=== PATIENT | male | born 1970 | race Caucasian/White ===

== ENCOUNTER → 2023-05-20 12:46 | Outpatient (BNVA) | payer BC, SELFPAY | PROVIDERS: PCP Family Medicine; Referring Provider Family Medicine; Visit Provider Internal Medicine | DX: R07.9 Chest pain, unspecified (principal) | CPT/HCPCS: 93005 ==

== ENCOUNTER → 2023-07-30 13:20 | Outpatient (BNVA) | payer BC, SELFPAY | PROVIDERS: PCP Family Medicine; Referring Provider Family Medicine; Visit Provider Specialist | DX: M25.511 Pain in right shoulder (principal); G89.29 Other chronic pain | CPT/HCPCS: 73030 ==

== ENCOUNTER 2023-09-10 11:08 | Emergency (ER) | payer BC, SELFPAY ==
--- NOTE | 2023-09-10 11:12 | CT_ITS ---
WS: [id number] CT HEAD NONCONTRAST HISTORY: Symptoms of acute stroke TECHNIQUE: Contiguous axial imaging performed through the brain in 2.5 mm imaging. Bone and soft tiss ue windows. Sagittal and coronal reformats reviewed. All CT scans at [facility] use at least one of these dose optimization techniques: automated exposure control; mA and/or kV adjustment per pa tient size (includes targeted exams where dose is matched to clinical indication); or iterative recon struction. DLP: 1135.0 mGy COMPARISON: None available. No acute intracranial hemorrhage, midline shift or mass effect. Area of decreased attenuation with loss of the dyer-white matter differentiation involving the LEFT p osterior cerebral artery territory extending along the temporal lobe. Suspect this is probably a suba cute infarct. Prominent perivascular space versus remote lacunar infarct along the inferior LEFT basa l ganglia. Additional small lacunar infarct LEFT caudate body. Ventricles: Normal size with no hydrocephalus. No inferior displacement of the cerebellar tonsils. Paranasal sinuses: As visualized are clear. Mastoid air cells: Well pneumatized. Calvarium and scalp: Skull is intact with no soft tissue edema or swelling. CT/CT head thrombolytic 29689 IMPRESSION: 1. 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 No hemorrhage. Consider nonemergent MRI brain with contrast to be sure there is n o underlying enhancing mass. 2. Small lacunar infarct versus perivascular space inferior LEFT basal ganglia and a prior lacunar infarct LEFT caudate body. Notified Sonya Paez MD at 09/10/2023 11:29 AM.
--- NOTE | 2023-09-10 11:19 | ED_ITS ---
HPI - Neuro Symptoms/Deficit 2 General: Chief Complaint: Neuro Symptoms/Deficit Stated Complaint: loss of vision, slurred speech Time Seen by Provider: 09/10/23 11:12 Source: patient Mode of arrival: ambulatory Limitations: no limitations History of Present Illness: 53-year-old male who i-STAT at 1030 this morning started slurring his speech and was having vision changes could not see his phone on his left side. Patient has a history of A-fib he was on Eliquis he had had a aortic valve replacement done last week at [facility] she states that he had had a possible stroke during the surgery she is unsure if he received any lytics at that time they have started him on Coumadin he took a dose this morning. Denies any headache denies any fevers. Associated symptoms: Deny chest pain, headache(s), nausea or vomiting Review of Systems 2 Const: Denies: fever(s), chills, body aches or change in appetite Eyes: Reports: blurry vision and blind spots; Denies: eye discomfort ENMT: Denies: throat pain or dental pain Card: Denies: chest pain Resp: Denies: dyspnea GI: Denies: abdominal pain, nausea, vomiting or diarrhea Musc: Denies: neck pain or back pain Skin/Breast: Denies: rash Neuro: Reports: Slurred speech present; Denies: headache(s) PFSH ED 2 PFSH: Medical History Chronic atrial fibrillation NIH stroke score 2 NIHSS: Level Of Consciousness - 1a: 0 Level Of Consciousness Questions - 1b: Both Correct Level Of Consciousness Commands - 1c: Both Correct Best Gaze - 2: Normal Visual Rojo - 3: Partial Hemianopia Facial Palsy - 4: N ormal Motor Arm Right - 5: No Drift Motor Arm Left - 5: No Drift Motor Leg Right - 6: No Drift Motor Leg Left - 6: No Drift Limb Ataxia - 7: P resent In One Limb Sensory - 8: Normal Best Language - 9: Mild/Moderate Aphasia Dysarthia - 10: Normal Extinction And Inattention - 11: 0 Score: Total Score: 3 Course 2 Vital Signs: Vital signs: Vital Signs Temperature 98.0 F 09/10/23 11:27 Pulse Rate 85 09/10/23 13:33 Respiratory Rate 15 09/10/23 13:33 Blood Pressure 113/67 09/10/23 12:49 Pulse Oximetry 100 09/10/23 13:33 Oxygen Delivery Me thod Room Air 09/10/23 12:49 MDM - Neuro Symptoms/Deficit Medical Decision Making Patient presents here with a likely TIA as symptoms here of completely resolved he did have a previous stroke a week ago he is currently on Coumadin his INR is 2 here. I did offer admission he states he feels improved like to go home as he is follow-up with his CV surgeon tomorrow he is to return if worsening he understands agrees to plan Medical Records I reviewed the patient's medical records. Lab Data I reviewed the patient's lab results. 09/10/23 11:20 09/10/23 11:[address] 09/10/23 11:12 IMPRESSION: 1. 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 No hemorrhage. Consider nonemergent MRI brain with contrast to be sure there is no underlying enhancing mass. 2. Small lacunar infarct versus perivascular space inferior LEFT basal ganglia and a prior lacunar infarct LEFT caudate body. Notified Sonya Paez MD at 09/10/2023 11:29 AM. Head/Neck CTA 09/10/23 11:33 IMPRESSION: 1. Normal cervical carotid arteries. No stenosis. 2. Severe stenosis LEFT M1 segment with paucity of vessels distally. 3. LEFT posterior cerebral artery appears patent. No thrombus. 4. Postsurgical changes in the mediastinum from prior recent CABG. There is still air in the mediastinum and edema. This is probably all appropriate for the recent surgery. 5. LEFT chest wall subcutaneous air. Laboratory Results WBC 11.79 10^3/uL (3.29-11.43) H 09/10/23 11:20 RBC 3.63 10^6/uL (3.85-5.65) L 09/10/23 11:20 Hgb 11.00 g/dL (11.27-16.99) L 09/10/23 11:20 Hct 34.1 % (37-53) L 09/10/23 11:20 MCV 93.9 fl (82-101) 09/10/23 11:20 MCH 30.3 pg (27-33) 09/10/23 11:20 MCHC 32.3 g/dL (30-55) 09/10/23 11:20 RDW 15.5 % (12.1-15.1) H 09/10/23 11:20 Plt Count 382 10^3/cmm (157-399) 09/10/23 11:20 MPV 9.6 fL (7.4-10.4) 09/10/23 11:20 Neut % (Auto) 61.8 % 09/10/23 11:20 Lymph % (Auto) 21.0 % 09/10/23 11:20 [place] % (Auto) 9.3 % 09/10/23 11:20 Eos % (Auto) 2.8 % 09/10/23 11:20 Baso % (Auto) 1.1 % 09/10/23 11:20 Neut # (Auto) 7.28 10^3/uL (1.8-7.7) 09/10/23 11:20 Lymph # (Auto) 2.5 10^3/uL (0.8-4.8) 09/10/23 11:20 [place] # (Auto) 1.1 10^3/uL (0.2-0.9) H 09/10/23 11:20 Eos # (Auto) 0.3 10^3/uL (0.0-0.8) 09/10/23 11:20 Baso # (Auto) 0.1 10^3/uL (0.0-0.1) 09/10/23 11:20 Nucleated RBC % (auto) 0 % 09/10/23 11:20 Nucleated RBCs # 0.0 /100WBC 09/10/23 11:20 PT 23.50 SECONDS (12.1-14.9) H 09/10/23 11:20 INR 2.01 (0.8-1.2) H 09/10/23 11:20 APTT 45.1 SECONDS (23.9-36.7) H 09/10/23 11:20 Sodium 137 mmol/L (136-145) 09/10/23 11:20 Potassium 4.6 mmol/L (3.5-5.1) 09/10/23 11:20 Chloride 101 mmol/L (98-107) 09/10/23 11:20 Carbon Dioxide 27 mmol/L (22-29) 09/10/23 11:20 Anion Gap 13.6 (5-19) 09/10/23 11:20 BUN 11 mg/dL (6-20) 09/10/23 11:20 Creatinine 1.0 mg/dL (0.7-1.2) 09/10/23 11:20 GFR Calculation 77.9 mL/min (90-130) L 09/10/23 11:20 Glucose 103 mg/dL (65-115) 09/10/23 11:20 POC Glucose 102 mg/dL (70-110) 09/10/23 11:27 Calculated Osmolality 284 mOsm/kg (285-295) L 09/10/23 11:20 Calcium 8.6 mg/dL (8.5-10.5) 09/10/23 11:20 Total Bilirubin 0.3 mg/dL (0.15-1.2) 09/10/23 11:20 AST 25 U/L (0-40) 09/10/23 11:20 ALT 25 U/L (0-41) 09/10/23 11:20 Alkaline Phosphatase 63 U/L (40-130) 09/10/23 11:20 Total Protein 6.3 g/dL (6.6-8.7) L 09/10/23 11:20 Albumin 3.2 g/dL (3.5-5.2) L 09/10/23 11:20 Globulin 3.1 g/dL (1.3-4.6) 09/10/23 11:20 Urine Color Light yellow (Yellow) 09/10/23 13:11 Urine Appearance Clear (CLEAR) 09/10/23 13:11 Urine pH 7 (5-7) 09/10/23 13:11 Ur Specific Coleman 1.015 (1.005-1.030) 09/10/23 13:11 Urine Protein Neg (Negative) 09/10/23 13:11 Urine Glucose (UA) Norm (Normal) 09/10/23 13:11 Urine Ketones Negative (Negative) 09/10/23 13:11 Urine Blood Neg (Negative) 09/10/23 13:11 Urine Nitrate Negative (Negative) 09/10/23 13:11 Urine Bilirubin Neg (Negative) 09/10/23 13:11 Urine Urobilinogen Norm mg/dL (Negative) 09/10/23 13:11 Ur Leukocyte Esterase Negative (Negative) 09/10/23 13:11 Urine Opiates Screen Negative ng/mL (Negative) 09/10/23 13:11 Ur Barbiturates Screen Negative ng/mL (Negative) 09/10/23 13:11 Ur Phencyclidine Scrn Negative ng/mL (Negative) 09/10/23 13:11 Ur Amphetamines Screen Negative ng/mL (Negative) 09/10/23 13:11 U Benzodiazepines Scrn Negative ng/mL (Negative) 09/10/23 13:11 Urine Cocaine Screen Negative ng/mL (Negative) 09/10/23 13:11 U Marijuana (THC) Screen Negative ng/mL (Negative) 09/10/23 13:11 All radiology interpretation(s) finalized by discharge EKG Data EKG 1: I personally reviewed and interpreted this EKG as follows: EKG interpretation date: 09/10/23 EKG interpretation time: 11:31 Interpretation: aflutter hr [address] elevation qrs 118 qtc 415 Discharge Plan Discharge Patient Disposition: Home Clinical Impression: Transient cerebral ischemia Condition: Stable Prescriptions: No Action atorvastatin 80 mg tablet 80 mg PO BEDTIME metoprolol succinate 25 mg tablet extended release 24 hr 25 mg PO DAILY furosemide 40 mg tablet 40 mg PO QAM methocarbamol 500 mg tablet 500 mg PO Q6H PRN (Reason: MUSCLE SPASMS) amiodarone 200 mg tablet 200 mg PO BID Aspir-81 81 mg Tablet,Delayed Release (Dr/Ec) 81 mg PO DAILY acetaminophen 500 mg Tablet 1,000 mg PO Q6H PRN (Reason: Pain) warfarin 4 mg tablet 4 mg PO QPM tamsulosin 0.4 mg capsule 0.4 mg PO QPM gabapentin 300 mg capsule 300 mg PO TID colchicine 0.6 mg tablet 0.6 mg PO QAM oxycodone 5 mg tablet 5 mg PO Q4H PRN (Reason: Pain, Moderate) potassium chloride 20 mEq tablet extended release 20 meq PO QAM Discharge Orders: Discharge ED (Routine); Ordered 09/10/23 Ordered By: Sonya Paez Referrals: Cailtin Jaramillo MD [Primary Care Provider] - Discharge Diet: Advance as tolerated Discharge Activity: Resume usual activity Patient Instructions: Transient Ischemic Attack (ED) Coding Level of Care Code ED Temperature Regulator for Chg Tho
[2023-09-10 11:24] LABS: Basophils # 0.1 10^3/uL (0.0-0.1); Basophils % 1.1 %; Eosinophils # 0.3 10^3/uL (0.0-0.8); Eosinophils % 2.8 %; Hematocrit 34.1 % (37-53); Lymphocytes # 2.5 10^3/uL (0.8-4.8); Mean Corpuscular HGB Conc 32.3 g/dL (30-55); Mean Corpuscular Hemoglobin 30.3 pg (27-33); Mean Corpuscular Volume 93.9 fl (82-101); Mean Platelet Volume 9.6 fL (7.4-10.4); Monocytes # 1.1 10^3/uL (0.2-0.9); Monocytes % 9.3 %; Neutrophils # 7.28 10^3/uL (1.8-7.7); Neutrophils % 61.8 %; Nucleated Red Blood Cells % 0 %; Platelet Count 382 10^3/cmm (157-399); Red Blood Count 3.63 10^6/uL (3.85-5.65); Red Cell Distribution Width 15.5 % (12.1-15.1); White Blood Count 11.79 10^3/uL (3.29-11.43)
[2023-09-10 11:27] VITALS: BP 140/97; PULSE 86; RESP 20; TEMP 36.7; O2SAT 91
[2023-09-10 11:31] LABS: Glucose Point of Care 102 mg/dL (70-110)
--- NOTE | 2023-09-10 11:31 | ECG_ITS ---
[facility] Test Date: 2023-09-10 Pat Name: Stepan Boyce Department: Room: Gender: Male Mica Paster: : 1970 Requested By: Sonya Paez Order Number: [id number] Gerry MD: Dinora Barlow M.D. Measurements Intervals [place] Rate: 96 P: 0 NE: 0 QRS: 5 QRSD: 118 T: -42 QT: 361 QTc: 458 Interpretive Statements ATRIAL FLUTTER/TACHYCARDIA INCOMPLETE RIGHT BUNDLE BRANCH BLOCK [90+ ms QRS DURATION, TERMINAL R IN V1/V2, 40+ ms S IN I/aVL/V4/V5/V6] ST DEVIATION AND MODERATE T-WAVE ABNORMALITY, CONSIDER LATERAL ISCHEMIA [-0.1+ mV T-WAVE IN I/aVL/V5/V6] ST DEVIATION AND MODERATE T-WAVE ABNORMALITY, CONSIDER INFERIOR ISCHEMIA [-0.1+ mV T-WAVE IN II/aVF] Compared to ECG 05/20/2023 12:54:24 Atrial fibrillation no longer present T-wave abnormality still present Possible ischemia still present Electronically Signed On 09-10-2023 20:02:00 CDT by Dinora Barlow M.D. [email or web address]
--- NOTE | 2023-09-10 11:33 | CT_ITS ---
WS: [id number] CT ANGIOGRAM CEREBRAL AND CAROTID ARTERIES HISTORY: cva TECHNIQUE: CT angiogram is performed of the carotid and cerebral arteries. During arterial injection imaging is obtained from the skull vertex to the aortic arch in 1.25 mm imaging. Coronal and sagittal reformats are submitted. Additional multi planar reformats of the carotid and cerebral arteries are submitted, MIP imaging also reviewed. NASCET criteria utilized. All CT scans at [facility] us e at least one of these dose optimization techniques: automated exposure control; mA and/or kV adjust ment per patient size (includes targeted exams where dose is matched to clinical indication); or iter ative reconstruction. CONTRAST: Omnipaque 350; 100 mL IV. DLP: 583.52 mGy.cm COMPARISON: No similar studies. Carotid Angiogram: Right carotid: Common carotid artery: Arises normally from the innominate artery. No significant plaque or stenosis. Internal carotid artery: No plaque or stenosis. External carotid artery: Patent. Left carotid: Common carotid artery: Arises normally from the aorta. No significant plaque or stenosis. Internal carotid artery: No plaque or stenosis. External carotid artery: Patent. Right vertebral artery: Unremarkable. Left vertebral artery: Unremarkable. Arises normally from the subclavian artery. Subclavian arteries: RIGHT subclavian artery is negative. Partial obscuration of the LEFT subclavian artery due to contrast injection bolus. Upper thorax: Patient is recently status post CABG. Small layering pleural effusions are noted extend ing towards the lung apices. Small amount of air in the anterior mediastinum. This is probably due to the recent surgery. Mediastinitis may appear similar. There is a additional subcutaneous emphysema o jaxson the LEFT thorax encasing the pectoralis muscles. Thyroid gland: Normal. Osseous structures: Unremarkable. CEREBRAL ANGIOGRAM: Intracranial vertebral arteries: Normal with no significant atherosclerosis. Basilar artery: No significant stenosis or occlusion. No aneurysm. Intracranial Internal carotid arteries: Moderate narrowing of the distal LEFT carotid artery just pro ximal to the supraclinoid carotid. At least 50% stenosis. RIGHT intracranial carotid arteries normal. Middle cerebral arteries: Minimal contrast enhancement in the LEFT M1 segment and distally. There are attempts at reconstitution with a paucity of vessels distally. There is calcified plaque in the mid LEFT M1 segment. Normal RIGHT MCA. Anterior cerebral arteries and ACOM: Normal. Posterior cerebral arteries and PCOM's: Normal. Dural venous sinuses are normally enhancing. Mastoid air cells: Normal. Paranasal sinuses: Normal. Calvarium: Normal. CT/CT angio headneck* [id number] IMPRESSION: 1. Normal cervical carotid arteries. No stenosis. 2. Severe stenosis LEFT M1 segment with paucity of vessels distally. 3. LEFT posterior cerebral artery appears patent. No thrombus. 4. Postsurgical changes in the mediastinum from prior recent CABG. There is st ill air in the mediastinum and edema. This is probably all appropriate for the recent surgery. 5. LEFT chest wall subcutaneous air.
[2023-09-10 11:46] LABS: INR 2.01 (0.8-1.2)
[2023-09-10 11:47] LABS: Partial Thromboplastin Time 45.1 SECONDS (23.9-36.7)
--- NOTE | 2023-09-10 11:49 | PC.NURSE ---
On Dr. Lyons, neurologist, arrival pt symptoms now resolved. current stroke scale is 0. pt still complaining of nausea.
[2023-09-10 12:02] LABS: Alanine Aminotransferase 25 U/L (0-41); Albumin Level 3.2 g/dL (3.5-5.2); Alkaline Phosphatase 63 U/L (40-130); Anion Gap 13.6 (5-19); Aspartate Amino Transferase 25 U/L (0-40); Blood Urea Nitrogen 11 mg/dL (6-20); Calcium 8.6 mg/dL (8.5-10.5); Carbon Dioxide 27 mmol/L (22-29); Chloride 101 mmol/L (98-107); Creatinine Clr Calc Pharmacy 98.3916; Globulin 3.1 g/dL (1.3-4.6); Glomerular Filtration Rate 77.9 mL/min (90-130); Glucose 103 mg/dL (65-115); Osmolality Calculated 284 mOsm/kg (285-295); Potassium 4.6 mmol/L (3.5-5.1); Sodium 137 mmol/L (136-145); Total Bilirubin 0.3 mg/dL (0.15-1.2); Total Protein 6.3 g/dL (6.6-8.7)
--- NOTE | 2023-09-10 12:14 | PM.CONSULT ---
Providers/Reason For Consult Consulting Physician/Specialty*: Michael Lyons MD neurology and epilepsy Reason for Consult*: Code stroke emergency department room number 10 Primary Care Provider: Caitlin Jaramillo MD History of Present Illness History of Present Illness tSepan Boyce is a 53 year old male with a history of atrial fibrillation patient was on Eliquis but now on Coumadin. Patient underwent aortic valve replacement on 09/05/2023 at another facility. Patient was reported to experience a stroke on 09/05/2023 during the surgery or postoperatively. Head CT scan performed on 09/05/2023 revealed left posterior medial temporal lobe infarction. No thrombolytics were administered. On 09/10/2023 at approximately 10:30 AM the patient was reported to have acute onset of right frontal headache associated with slurred speech as well as vision loss with inability to see objects. In the emergency room the patient reported near resolution of the right frontal headache improvement in his speech and reports of return of his vision. Code stroke was initiated at 11:12 AM on 09/10/2023. NIH score = 0. Stat noncontrast head CT was obtained on 09/10/2023 and revealed 1. Area of decreased attenuation most likely a subacute infarct involving the LEFT SCREEN VENT BINDER territory, including the LEFT occipital and inferior temporal lobe. No hemorrhage. Consider nonemergent MRI brain with contrast to be sure there is no underlying enhancing mass. 2. Small lacunar infarct versus perivascular space inferior LEFT basal ganglia and a prior lacunar infarct LEFT caudate body. Since the patient is on anticoagulation (Coumadin) and was on Eliquis prior to aortic valve replacement 09/05/2023, patient is not a candidate for intravenous thrombolytics and no intravenous thrombolytics were administered. The patient will undergo CT angiogram of the head and neck to assess for thrombus to determine if patient is a candidate for thrombectomy. Drug allergies: None Current medications: Warfarin 4 mg p.o. q. evening Amiodarone 200 mg p.o. twice daily Aspirin 81 mg p.o. daily Lipitor 80 mg p.o. nightly Tylenol 1000 mg p.o. every 6 hours as needed for pain Colchicine 0.6 mg p.o. daily Lasix 40 mg p.o. every morning Neurontin 300 mg p.o. 3 times daily for neuropathy pain Methocarbamol 500 mg p.o. every 6 hours as needed Metoprolol 25 mg p.o. daily Oxycodone 5 mg p.o. every 4 hours as needed for pain Potassium chloride 20 mill equivalents p.o. daily Tamsulosin 0.4 mg p.o. daily Past medical history: Atrial fibrillation treated with warfarin Aortic valve replacement 09/05/2023 History of aortic stenosis Hypertension Lower extremity neuropathy Habits: The patient reports drinking 2 beers a day and smoking 1 pack/day but quit 2 weeks prior to his aortic valve surgery Family history: Negative for strokes Review of Systems General: Reports: 10 or more systems reviewed and unremarkable except in HPI and below Medications/Allergies Home Medications Medication Instructions Recorded Confirmed Last Taken Type atorvastatin 80 mg tablet 80 mg PO BEDTIME 05/20/23 09/10/23 09/09/23 History metoprolol succinate 25 mg 25 mg PO DAILY 05/20/23 09/10/23 09/10/23 History tablet,extended release 24 hr acetaminophen 500 mg tablet 1,000 mg PO Q6H PRN Pain 09/10/23 09/10/23 Unknown History amiodarone 200 mg tablet 200 mg PO BID 09/10/23 09/10/23 09/10/23 History aspirin 81 mg tablet,delayed 81 mg PO DAILY 09/10/23 09/10/23 09/10/23 History release colchicine 0.6 mg tablet 0.6 mg PO QAM 09/10/23 09/10/23 09/10/23 History furosemide 40 mg tablet 40 mg PO QAM 09/10/23 09/10/23 09/10/23 History gabapentin 300 mg capsule 300 mg PO TID 09/10/23 09/10/23 09/10/23 History methocarbamol 500 mg tablet 500 mg PO Q6H PRN MUSCLE SPASMS 09/10/23 09/10/23 Unknown History oxycodone 5 mg tablet 5 mg PO Q4H PRN Pain, Moderate 09/10/23 09/10/23 09/10/23 History potassium chloride 20 mEq 20 meq PO QAM 09/10/23 09/10/23 09/10/23 History tablet,extended release tamsulosin 0.4 mg capsule 0.4 mg PO QPM 09/10/23 09/10/23 09/09/23 History warfarin 4 mg tablet 4 mg PO QPM 09/10/23 09/10/23 09/09/23 History Allergies Allergy/AdvReac Type Severity Reaction Status Date / Time No Known Allergies Allergy Verified 07/30/23 13:53 PFSH Acute PFSH: Medical History Chronic atrial fibrillation Vitals/I&O/Wt Last Vital Signs Temp 98.0 F 09/10/23 11:27 Pulse 86 09/10/23 11:27 Resp 20 H 09/10/23 11:27 BP 140/97 09/10/23 11:27 Pulse Ox 91 09/10/23 11:27 Weight last 48 hrs Weight 205 lb Physical Exam Narrative: NIH score = 0 Serum glucose 103 The patient is currently alert and oriented x 3 speech fluent. Head normocephalic. Neck supple. Cranial nerves II through XII grossly intact. Pupils 4 mm round reactive to light and accommodation. Extraocular movements intact. There were no nystagmus. Visual whiting appear grossly to be full via confrontation although the patient initially reported complete vision loss in both eyes bilaterally prior to arrival to [facility] emergency room. There was no obvious facial weakness. Motor testing 5/5 bilaterally. Deep tendon reflexes revealed plantar responses bilaterally. Sensory examination was intact to touch. Patient reported increased sensitivity to touch on the right foot. He reports history of chronic right foot pain and neuropathy in his legs. There was no extinction on double sensory stimulation. Throat clear. Lungs clear. Heart revealed atrial fibrillation. Extremities revealed lower extremity swelling at 2+. There was no cyanosis. Data 09/10/23 11:20 09/10/23 11:20 A&P Assessment and plan (1) Left sided cerebral hemisphere cerebrovascular accident (CVA): Impression: 1. Left cerebral infarction manifested as reports of slurred speech and vision loss 09/10/2023 improved in the emergency room. NIH score = 0. In view of the patient history of aortic valve replacement 09/05/2023 and patient on warfarin for anticoagulation, patient was not a candidate for intravenous thrombolytics and no thrombolytics were administered. 1a. Subacute stroke in the left posterior medial temporal lobe reported on outside CT scan 09/05/2023 2. Aortic valve replacement 09/05/2023 3. Atrial fibrillation treated with warfarin 4. History of lower extremity pain 5. Lower extremity edema 6. Hypertension Plan: 1. CT angiogram of the head and neck to assess for thrombus to determine if patient is a candidate for thrombectomy 2. Neurochecks per NIH stroke protocol 3. Follow recommendations from cardiology regarding the patient's recent aortic valve replacement 4. Recommend formal visual field testing to assess for any visual field deficits 5. Keep head of bed elevated to 30 degrees as tolerated 6. No hypotonic fluids to minimize cerebral edema 7. Consider noncontrast head MRI to further assess for posterior circulation stroke if no contraindications from recent aortic valve replacement performed on 09/05/2023 Consult Attestations Medical Necessity Statement: The patient was evaluated by neurology for code stroke emergency department room #10 Coding Level of Care Code 59445 Diagnoses Left sided cerebral hemisphere cerebrovascular accident (CVA) I63.9
[2023-09-10 12:49] VITALS: BP 113/67; PULSE 85; RESP 16; O2SAT 100
[2023-09-10 13:23] LABS: Add Urine Microscopic? NO; Charge for UA Resulting for Rev
[2023-09-10 13:26] LABS: Bilirubin Urine Neg (Negative); Blood Urine Neg (Negative); Glucose Urine UA Norm (Normal); Ketones Urine Negative (Negative); Leukocyte Esterase Urine Negative (Negative); Nitrate Urine Negative (Negative); Protein Urine Neg (Negative); Specific Gravity, Urine 1.015 (1.005-1.030); Urine Appearance Clear (CLEAR); Urine Color Light yellow (Yellow); Urobilinogen Urine Norm (Negative); pH Urine 7 (5-7)
[2023-09-10 13:33] VITALS: PULSE 85; RESP 15; O2SAT 100
[2023-09-10 13:35] LABS: Amphetamines Screen Urine Negative (Negative); Barbiturates Screen Urine Negative (Negative); Benzodiazepines Screen Urine Negative (Negative); Cocaine Screen Urine Negative (Negative); Opiate Screen Urine Negative (Negative); PCP Screen Urine Negative (Negative); THC Screen Urine Negative (Negative)
== END 2023-09-10 13:36 | disposition home or self-care (01) ==
PROVIDERS: Emergency Provider Emergency Medicine; PCP Family Medicine
DX: G45.9 Transient cerebral ischemic attack, unspecified (principal); Z79.82 Long term (current) use of aspirin; Z79.01 Long term (current) use of anticoagulants
CPT/HCPCS: 36415; 36416; 70450; 70496; 70498; 80053; 80306; 81003; 82962; 85025; 85610; 85730; 93005; 99285; Q9967

== ENCOUNTER 2023-10-17 08:54 | Outpatient (RCR) | payer BC, SELFPAY | END 2023-11-02 23:59 | disposition home or self-care (01) | LOC: SPT 08:54 | PROVIDERS: PCP Family Medicine; Visit Provider Surgery | DX: M25.511 Pain in right shoulder (principal); G89.29 Other chronic pain | CPT/HCPCS: 97110; 97162 ==

== ENCOUNTER → 2023-10-21 09:12 | Outpatient (CLI) | payer BC, SELFPAY ==
--- NOTE | 2023-10-21 09:30 | MR_ITS ---
WS: [id number] MRI RIGHT SHOULDER NONCONTRAST TECHNIQUE: Sagittal T2, coronal T1, T2 and proton density imaging. Axial gradient PDE imaging. CLINICAL INFORMATION: M25.511 - Pain in right shoulder COMPARISON: None. FINDINGS: Some images degraded by susceptibility artifact from hardware anchors Moderate to advanced arthritis AC joint with slight subacromial spurring. Impingement distal supraspi natus. Rotator cuff anchors humeral head. Trace subacromial subdeltoid fluid. Rotator cuff repair lin ears intact with chronic thinning of the distal supraspinatus at the repair site. No tendon retractio n. Infraspinatus appears intact with mild chronic thinning. Normal teres minor. Normal subscapularis. Biceps tendon appears intact within the bicipital groove. Medial subluxation of the biceps tendon along the proximal bicipital groove. Biceps labral anchor appears intact. Intra-ar ticular biceps tendon not well visualized due to hardware artifact. Normal bone marrow signal humerus and glenoid. No other suspicious findings. MR/MR shoulder RT wo con* [id number] IMPRESSION: 1. Moderate to advanced arthritis AC joint with slight subacromial and subdelt oid fluid. 2. Prior rotator cuff repair. Supraspinatus rotator cuff repair appears intact with chronic thinning and postoperative changes. No tendon retraction. 3. Rotator cuff is otherwise intact. 4. Biceps tendon intact within the bicipital groove with medial subluxation al lon the proximal bicipital groove. 5. No other acute findings.
== END | disposition home or self-care (01) ==
LOC: RAD 09:12
PROVIDERS: PCP Family Medicine; Visit Provider Specialist
DX: M19.011 Primary osteoarthritis, right shoulder (principal); Z98.890 Other specified postprocedural states; S43.081A Other subluxation of right shoulder joint, initial encounter
CPT/HCPCS: 73221

== ENCOUNTER 2023-11-04 15:44 | Outpatient (RCR) | payer BC, SELFPAY | END 2023-12-03 23:59 | disposition home or self-care (01) | LOC: CR 15:44 | PROVIDERS: PCP Family Medicine; Referring Provider Surgery; Visit Provider Surgery | DX: Z95.2 Presence of prosthetic heart valve (principal) | CPT/HCPCS: 93798 ==

== ENCOUNTER 2023-11-07 06:00 | Outpatient (RCR) | payer BC, SELFPAY | END 2023-12-03 23:59 | disposition home or self-care (01) | LOC: SST 06:00 | PROVIDERS: PCP Family Medicine; Visit Provider Psychiatry & Neurology Neurology | DX: G45.9 Transient cerebral ischemic attack, unspecified (principal); I48.20 Chronic atrial fibrillation, unspecified; I35.0 Nonrheumatic aortic (valve) stenosis; I10 Essential (primary) hypertension | CPT/HCPCS: 92507; 92523 ==

== ENCOUNTER 2023-12-04 06:00 | Outpatient (RCR) | payer BC, SELFPAY | END 2024-01-03 23:59 | disposition home or self-care (01) | LOC: SST 06:00 | PROVIDERS: PCP Family Medicine; Visit Provider Psychiatry & Neurology Neurology | DX: I48.20 Chronic atrial fibrillation, unspecified (principal); G45.9 Transient cerebral ischemic attack, unspecified; I10 Essential (primary) hypertension; I35.0 Nonrheumatic aortic (valve) stenosis | CPT/HCPCS: 92507 ==

== ENCOUNTER 2023-12-16 08:32 | Outpatient (RCR) | payer BC, SELFPAY | END 2024-01-03 23:59 | disposition home or self-care (01) | LOC: CR 08:32 | PROVIDERS: PCP Family Medicine; Referring Provider Surgery; Visit Provider Surgery | DX: Z95.1 Presence of aortocoronary bypass graft (principal); Z95.2 Presence of prosthetic heart valve | CPT/HCPCS: 93798 ==

== ENCOUNTER 2024-01-04 07:59 | Outpatient (RCR) | payer BC, SELFPAY | END 2024-02-02 23:59 | disposition home or self-care (01) | LOC: CR 07:59 | PROVIDERS: PCP Family Medicine; Referring Provider Surgery; Visit Provider Surgery | DX: Z95.1 Presence of aortocoronary bypass graft (principal); Z95.2 Presence of prosthetic heart valve | CPT/HCPCS: 93798 ==

== ENCOUNTER 2024-01-13 12:56 | Outpatient (CLI) | payer BC, SELFPAY ==
--- NOTE | 2024-01-13 13:00 | MR_ITS ---
WS: [id number] MRI BRAIN WITH AND WITHOUT CONTRAST HISTORY: I10 - Essential (primary) hypertension COMPARISON: CT head 09/10/2023 TECHNIQUE: Multiplanar imaging performed through the brain with MultiHance 19 ml's IV. Previously described LEFT occipital lobe and medial temporal lobe infarct is reidentified. Evolution of the infarct which is predominantly of decreased signal on the diffusion and increased signal on th e ADC map. There are a few peripheral areas of persistent diffusion abnormality. There is a lobulated configuration of the infarct centered in the LEFT occipital and temporal lobe. Additional cortical l aminar necrosis noted on the T1 sequence. No significant enhancement. Additional small lacunar infarcts in the LEFT centrum semiovale and hernandez radiata. These areas do no t enhance. No susceptibility artifacts or prior lacunar infarcts. Ventricles and extra-axial spaces are normal. Clivus and pituitary gland are normal. Visualized posterior fossa and brainstem are also normal. Postcontrast images are negative for masses or vascular malformations. Dural venous sinuses are normal. Paranasal sinuses: Well aerated with no significant disease. Mastoid air cells: Normal. Calvarium and scalp: Normal. MR/MR head wo/w con [id number] IMPRESSION: 1. Previously described infarct involving the LEFT occipital and medial tempor al lobes continues to evolve. Mild cortical laminar necrosis with no enhancemen t. The extent of the edema surrounding the infarct has decreased since the CT o f 09/10/2023. 2. Additional small lacunar infarcts in the LEFT cerebrum. 3. No acute infarct. 4. No enhancing mass or hemorrhage.
[2024-01-13] MEDS: gadobenate dimeglumine 20 mL vial IV (13:19)
== END 2024-01-13 12:57 | disposition home or self-care (01) ==
PROVIDERS: PCP Family Medicine; Visit Provider Psychiatry & Neurology Neurology
DX: I10 Essential (primary) hypertension (principal); I35.0 Nonrheumatic aortic (valve) stenosis; I63.9 Cerebral infarction, unspecified; H53.40 Unspecified visual field defects
CPT/HCPCS: 70553

== ENCOUNTER 2024-02-03 06:00 | Outpatient (RCR) | payer BC, SELFPAY | END 2024-03-04 23:59 | disposition home or self-care (01) | LOC: SST 06:00 | PROVIDERS: PCP Family Medicine; Visit Provider Psychiatry & Neurology Neurology | DX: I48.20 Chronic atrial fibrillation, unspecified (principal); I35.0 Nonrheumatic aortic (valve) stenosis; I10 Essential (primary) hypertension; G45.9 Transient cerebral ischemic attack, unspecified | CPT/HCPCS: 92507 ==

== ENCOUNTER 2024-02-03 08:33 | Outpatient (RCR) | payer BC, SELFPAY | END 2024-03-04 23:59 | disposition home or self-care (01) | LOC: CR 08:33 | PROVIDERS: PCP Family Medicine; Referring Provider Surgery; Visit Provider Surgery | DX: Z95.2 Presence of prosthetic heart valve (principal) | CPT/HCPCS: 93798 ==

== ENCOUNTER → 2024-03-03 09:26 | Outpatient (BNVA) | payer BC, SELFPAY | PROVIDERS: PCP Family Medicine; Visit Provider Nurse Practitioner | DX: M75.81 Other shoulder lesions, right shoulder (principal) | CPT/HCPCS: 36415; 80053; 81003; 85025 ==

== ENCOUNTER 2024-03-05 06:00 | Outpatient (RCR) | payer BC, SELFPAY | END 2024-04-03 23:59 | disposition home or self-care (01) | LOC: SST 06:00 | PROVIDERS: PCP Family Medicine; Visit Provider Psychiatry & Neurology Neurology | DX: I48.20 Chronic atrial fibrillation, unspecified (principal); I35.0 Nonrheumatic aortic (valve) stenosis; I10 Essential (primary) hypertension; G45.9 Transient cerebral ischemic attack, unspecified | CPT/HCPCS: 92507 ==

== ENCOUNTER → 2024-03-12 11:34 | Outpatient (BNVA) | payer BC, MEDICAID, SELFPAY | PROVIDERS: PCP Family Medicine; Visit Provider Family Medicine | DX: Z01.818 Encounter for other preprocedural examination (principal) | CPT/HCPCS: 93005 ==

== ENCOUNTER 2024-03-18 10:46 | Day surgery (SDC) | payer BC, MEDICAID, SELFPAY ==
[2024-03-18] VITALS (9 sets, daily range): BP systolic 124–143; BP diastolic 70–94; PULSE 56–69; RESP 14–17; TEMP 36.2–36.4; O2SAT 95–100; BMI 27.6
--- NOTE | 2024-03-18 11:10 | P.HPUD_ITS ---
Surgery/Procedure H&P Update DATE OF PROCEDURE: March 18, 2024 DATE H&P PERFORMED: 03/12/24 H&P UPDATE INFORMATION: I have reviewed H&P completed within last 30 days, I have examined patient prior to procedure, No changes to prior documentation and H&P is in [facility] EMR on date indicated PLANNED PROCEDURE: Operation Date: 03/18/24 12:50 Proposed Procedures p Distal Clavicle Resection(Right) - Catarina Casanova MD Related Problem List Diagnoses (1) Arthritis of right acromioclavicular joint: (2) Tendinitis of right rotator cuff: (3) History of repair of right rotator cuff:
[2024-03-18] MEDS: sodium chloride 0.9% 1,000 ML 30 ML IV (11:21)
[2024-03-18] MEDS: acetaminophen 1,000 MG/100 ML PIGGYBACK 400 MG IV (11:24)
[2024-03-18] MEDS: gabapentin 300 mg Capsule PO (11:26)
--- NOTE | 2024-03-18 11:38 | ANES.PREANE2 ---
Pre-Anesthetic Assessment Height/Weight: Height 5 ft 11 in Weight 198 lb Temp Pulse Resp BP Pulse Ox O2 Del Method 97.5 F L 69 17 139/87 98 Room Air 03/18/24 11:03/18/24 11:01 03/18/24 11:01 03/18/24 11:01 03/18/24 11:01 03/18/24 11:07 Preop Diagnosis: Rotator cuff tear Operation Date: 03/18/24 12:50 Proposed Procedures p Distal Clavicle Resection(Right) - Catarina Casanova MD Was Beta Lali taken within 24 hours: N/A Was Clonidine taken within 24 hours: N/A Last intake: Intake Last Liquid Date 03/17/24 Last Liquid Time 19:00 Last Solid Date 03/17/24 Last Solid Time 19:00 Social Tobacco and No alcohol Exam alert, oriented x 3, clear to auscultation bilaterally and regular rate & rhythm Systolic ejection flow murmur noted Airway Submandibular: within normal limits Cervical ROM: within normal limits Mallampati: Class III Dentition: full Anesthetic Plan ASA status: 3 Anesthesia: General and Regional (specify below) Other: No prior issues with anesthesia NPO since yesterday Patient had aortic valve replacement in August 2023, resultant A-fib s/p replacement Cardiac clearance received 2 weeks ago. 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 Hypertension on metoprolol Takes chronic Lovenox, last taken 03/17/2024 Current smoker Labs reviewed from 03/03/2024 and acceptable for procedure Plan for general anesthesia with preoperative block Medications/Allergies Home Medications Medication Instructions Recorded Confirmed Last Taken Type atorvastatin 80 mg tablet 80 mg PO BEDTIME 05/20/23 03/17/24 03/16/24 History metoprolol succinate 25 mg 25 mg PO DAILY 05/20/23 03/18/24 03/18/24 07:15 History tablet,extended release 24 hr acetaminophen 500 mg tablet 1,000 mg PO Q6H PRN Pain 09/10/23 03/17/24 03/03/24 History warfarin 4 mg tablet 4 mg PO QPM 09/10/23 03/17/24 03/12/24 History aspirin 81 mg tablet,delayed 81 mg PO DAILY 03/12/24 03/17/24 03/16/24 History release (Enteric Coated Aspirin) enoxaparin 80 mg/0.8 mL 80 mg (0.8 mL) SUBCUT Q12H #8 mL 03/15/24 03/17/24 03/17/24 Rx subcutaneous syringe (Lovenox) Allergies Allergy/AdvReac Type Severity Reaction Status Date / Time No Known Allergies Allergy Verified 03/12/24 12:05 Current Medications Generic Name Dose Route Start Last Admin Trade Name Freq PRN Reason Stop Dose Admin Sodium Chloride 1,000 mls @ 30 mls/hr 03/18/24 11:00 03/18/24 11:21 Sodium Chloride 0.9% IV 03/19/24 10:59 30 mls/hr .Q24H GUSTABO Administration PFSH Anesthesia Medical History Tendinitis of right rotator cuff Arthritis of right acromioclavicular joint Chronic atrial fibrillation Surgical History History of repair of right rotator cuff 07/2022 Social History Smoking and tobacco/nicotine status: current every day tobacco/nicotine user Data Anesthesia Cardiac Studies: No Data to Display
--- NOTE | 2024-03-18 12:07 | ANES.PROC ---
Anesthesia Procedures Procedure/Date: 03/18/24 Nerve Block ^: Nerve Block 1: Main Anesthesia: other (100mcg fentanyl, 2mg versed) Time Out Performed: Yes Consent: requested by attending/covering physician and from patient Nerve block location: interscalene Anesthesia monitors applied: pulse oximetry, EKG, BP cuff and oxygen Nerve block position: supine Anesthetic Used: ropivicaine 0.5% Amount of anesthesia used (mL): 30 Ultrasound used to: recognize landmarks Nerve Stimulator Used?: Yes Interscalene/Femoral BLK: other needle (pjunk 4inch) Injection: neg aspiration of heme Patient Tolerated Procedure: well Complications: none Additional Comments: decadron 4mg added to block
--- NOTE | 2024-03-18 12:09 | SUR.PHASEI ---
Interscalene Block was performed at bedside with anesthesia. Timeout was completed with family at bedside. Patient tolerated well
[2024-03-18] MEDS: ceFAZolin 2,000 mg SDV 2000 MG IVP (12:14)
[2024-03-18] MEDS: ceFAZolin 1,000 mg SDV 1000 MG IRRIGATION (13:10)
[2024-03-18] MEDS: HYDROcodone-acetaminophen 5-325 mg Tablet 1 TAB PO (15:06)
--- NOTE | 2024-03-18 15:30 | ANE.PACU2 ---
Inpatient post-anesthesia follow up: Airway intact: Yes Vital signs: Temperature 97.4 F Pulse Rate 61 Respiratory Rate 16 Blood Pressure 143/94 Pulse Oximetry 97 Oxygen Delivery Me thod Room Air Oxygen Flow Rate 8 Fraction of Inspir ed Oxygen Hydration adequate: Yes Nausea and vomiting: No Pain level: 1 Mental status: Baseline
--- NOTE | 2024-03-18 20:13 | P.OP_ITS ---
Operative Report Date of procedure: March 18, 2024 Pre-op diagnosis: Right acromioclavicular joint osteoarthritis with possible rotator cuff tear and impingement, status post prior right rotator cuff tear remotely Post-op diagnosis: Right partial rotator cuff tear with impingement and severe acromioclavicular joint osteoarthritis, and with retained foreign body, suture, from prior repair Post-op findings: Severely abraded rotator cuff secondary to severe impingement and osteophytosis of the acromion. Procedure done: Right rotator cuff debridement with acromioplasty and distal clavicle resection, removal of foreign body, suture from prior surgery. Implants: None Specimens removed/disposition: Bone, disposed of Pathology: None Surgeon: Catarina Casanova MD Automation Consultant: Yaneth Ramos, nurse practitioner, whose services were needed for positioning, retraction, and closure. Anesthesia: General (Intubated, ASA 3) Estimated blood loss (mL): 5 IV fluids (mL): 500 Urine output (mL): 0 (No Laughlin) Complications: None Findings: Significant impingement from lateral osteophytes on the acromion and from a thickened acromion. There was diffuse abrasion of the rotator cuff. Retained suture from prior rotator cuff repair. Severe degenerative osteoarthritis of the acromioclavicular joint Condition: stable Disposition: PACU (Then discharged to home to follow-up with me in the office) Brief History: This 54-year-old gentleman presented to the office complaining of right shoulder pain. Initially, he wished to have surgery last summer, but he had open heart surgery in August 2023 and had to have cardiac clearance prior to proceeding with operative intervention. Risks and complications of the surgery were discussed with him. MRI was consistent with degenerative thinning of the rotator cuff moderate to advanced osteoarthritis of the acromioclavicular joint and subacromial spurring. After discussion, the patient wished to proceed with operative intervention. Risks and complications of the surgical procedure were discussed with him. Consents were signed in the office. Questions were answered. Procedure: The patient was brought to the operating theater and underwent general intubated anesthesia, ASA 3. Preoperative interscalene block had also been placed. The patient was placed in a beachchair position and subsequently the right upper extremity was prepped and draped in the usual fashion utilizing DuraPrep. The arm was draped free. A surgical pause was performed prior to commencement of the surgical procedure. At the time of the surgical pause, we confirmed the site and side of surgery as well as administration of appropriate preoperative antibiotics Ancef 2 g. MRI was also reviewed at that time. Following the surgical pause, an incision was made at approximate level of the acromioclavicular joint extending across the anterolateral corner of the acromion and distally as necessary. Care was taken to avoid injury to the axillary nerve by limiting the distal extent of the incision. Dissection continued through skin and soft tissues using a scalpel. Hemostasis was obtained using electrocautery. Soft tissues were elevated off the acromion. Attention was directed to the acromioclavicular joint which was well exposed. A saw was then used to resect the distal clavicle without difficulty. The undersurface of the clavicle was palpated and was slightly further debrided. A power rasp was used to further smooth the area. When this was felt to be adequately resected, the wound was irrigated. The acromion was evaluated. There was significant osteophyte formation along the entire rim of the acromion. And there was severe impingement from a thickened acromion and these osteophytes. An acromioplasty was then accomplished using a combination of a saw and a power rasp. With this, we were able to remove compression caused by the acromion. The rotator cuff was then evaluated to look for tears. Bursectomy was accomplished. Evaluation of the rotator cuff then demonstrated diffuse thinning of the cuff. There was a retained suture from the patient's previous rotator cuff repair, and this was r emoved. It had an extended piece of suture out in the subacromial space. The entire bursal surface of the acromion was very rough and aggravated. The shoulder was placed through further range of motion to assure there was no further evidence of rotator cuff tear. Finding none, attention was then directed to closure. The wound was irrigated. Closure was accomplished with 0 Vicryl in the capsular tissues overlying the acromioclavicular joint area as well as over the acromion and down into the deltoid muscle. 3-0 Monocryl was used to close the subcutaneous tissues followed by 4-0 Monocryl subcuticular closure. This was followed by Dermabond, Steri-Strips, and OpSite. An ABD was placed in the axilla. The patient was placed in a slingshot style sling and was returned to the recovery room in satisfactory condition. The patient will be discharged to home to follow-up in the office as scheduled. There were no complications and no specimens. Related Problem List Diagnoses (1) Tendinitis of right rotator cuff: (2) Arthritis of right acromioclavicular joint: (3) History of repair of right rotator cuff:
== END 2024-03-18 15:30 | disposition home or self-care (01) ==
PROVIDERS: PCP Family Medicine; Visit Provider Specialist
PROC: (CPT 23120; principal; 2024-03-18 12:40)
PROC: (CPT 23130; 2024-03-18 12:40)
PROC: (CPT 23120; 2024-03-18 12:40)
PROC: (CPT 23120; 2024-03-18 12:40)
DX: M19.011 Primary osteoarthritis, right shoulder (principal); M75.101 Unspecified rotator cuff tear or rupture of right shoulder, not specified as traumatic; M79.5 Residual foreign body in soft tissue; Z86.73 Personal history of transient ischemic attack (TIA), and cerebral infarction without residual deficits; I10 Essential (primary) hypertension; I48.20 Chronic atrial fibrillation, unspecified; Z79.01 Long term (current) use of anticoagulants; Z79.82 Long term (current) use of aspirin; F17.200 Nicotine dependence, unspecified, uncomplicated
CPT/HCPCS: 23120; 23412; 88307; 88311; J0131; J0690; J1100; J2405; J2704; J3010; J3490; J7030

== ENCOUNTER 2024-04-04 06:00 | Outpatient (RCR) | payer BC, SELFPAY | END 2024-05-04 23:59 | disposition home or self-care (01) | LOC: SST 06:00 | PROVIDERS: PCP Family Medicine; Visit Provider Psychiatry & Neurology Neurology | DX: I48.20 Chronic atrial fibrillation, unspecified (principal); I35.0 Nonrheumatic aortic (valve) stenosis; I10 Essential (primary) hypertension; G45.9 Transient cerebral ischemic attack, unspecified | CPT/HCPCS: 92507 ==

== ENCOUNTER 2024-05-05 06:30 | Outpatient (RCR) | payer BC, SELFPAY | END 2024-06-04 23:59 | disposition home or self-care (01) | LOC: SPT 06:30 | PROVIDERS: PCP Family Medicine; Visit Provider Nurse Practitioner | DX: Z98.890 Other specified postprocedural states (principal) | CPT/HCPCS: 97110; 97140; 97161 ==

== ENCOUNTER 2024-05-27 06:30 | Outpatient (RCR) | payer BC, SELFPAY | END 2024-06-04 23:59 | disposition home or self-care (01) | LOC: SST 06:30 | PROVIDERS: PCP Family Medicine; Visit Provider Psychiatry & Neurology Neurology | DX: I63.532 Cerebral infarction due to unspecified occlusion or stenosis of left posterior cerebral artery (principal) | CPT/HCPCS: 92507 ==

== ENCOUNTER 2024-06-05 06:30 | Outpatient (RCR) | payer MEDICAID, SELFPAY | END 2024-07-02 23:59 | disposition home or self-care (01) | LOC: SPT 06:30 | PROVIDERS: PCP Family Medicine; Visit Provider Nurse Practitioner | DX: Z98.890 Other specified postprocedural states (principal) | CPT/HCPCS: 97110 ==

== ENCOUNTER → 2024-06-22 10:48 | Outpatient (BNVA) | payer MEDICAID, SELFPAY | PROVIDERS: PCP Family Medicine; Visit Provider Psychiatry & Neurology Neurology | DX: I63.9 Cerebral infarction, unspecified (principal); I10 Essential (primary) hypertension; I35.0 Nonrheumatic aortic (valve) stenosis; I48.20 Chronic atrial fibrillation, unspecified; G45.9 Transient cerebral ischemic attack, unspecified; R20.2 Paresthesia of skin; H53.40 Unspecified visual field defects; Z98.890 Other specified postprocedural states | CPT/HCPCS: 99212 ==

== ENCOUNTER 2024-07-03 06:00 | Outpatient (RCR) | payer MEDICARE, SELFPAY | END 2024-08-02 23:59 | disposition home or self-care (01) | LOC: SOT 06:00 | PROVIDERS: Visit Provider Psychiatry & Neurology Neurology | DX: I63.9 Cerebral infarction, unspecified (principal); H53.40 Unspecified visual field defects; I10 Essential (primary) hypertension | CPT/HCPCS: 97112; 97167 ==

== ENCOUNTER 2024-07-03 06:00 | Outpatient (RCR) | payer MEDICARE, MEDICAID, SELFPAY | END 2024-08-02 23:59 | disposition home or self-care (01) | LOC: SPT 06:00 | PROVIDERS: Visit Provider Psychiatry & Neurology Neurology | DX: Z98.890 Other specified postprocedural states (principal); I63.9 Cerebral infarction, unspecified | CPT/HCPCS: 97110; 97161 ==

== ENCOUNTER 2024-07-03 06:00 | Outpatient (RCR) | payer MEDICARE, SELFPAY | END 2024-08-02 23:59 | disposition home or self-care (01) | LOC: SST 06:00 | PROVIDERS: Visit Provider Psychiatry & Neurology Neurology | DX: H53.40 Unspecified visual field defects (principal); I63.9 Cerebral infarction, unspecified; I10 Essential (primary) hypertension; I35.0 Nonrheumatic aortic (valve) stenosis; I48.20 Chronic atrial fibrillation, unspecified | CPT/HCPCS: 92507; 96105 ==

== ENCOUNTER 2024-07-16 12:18 | Inpatient (IN) | payer MEDICARE, MEDICAID, SELFPAY ==
[2024-07-16 12:30] VITALS: BP 179/109; PULSE 103; RESP 18; TEMP 36.7; O2SAT 97; BMI 25.1
--- NOTE | 2024-07-16 12:37 | PC.NURSE ---
pt changed into green paper scrubs, belongings removed and inventoried by [employer] security and this nurse
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
[2024-07-16 13:27] LABS: Amphetamines Screen Urine Negative (Negative); Barbiturates Screen Urine Negative (Negative); Benzodiazepines Screen Urine Negative (Negative); Cocaine Screen Urine Negative (Negative); Opiate Screen Urine Negative (Negative); PCP Screen Urine Negative (Negative); THC Screen Urine Negative (Negative)
[2024-07-16 13:27] LABS: Basophils # 0.1 10^3/uL (0.0-0.1); Basophils % 0.8 %; Eosinophils % 0.4 %; Hematocrit 45.8 % (37-53); Lymphocytes # 2.3 10^3/uL (0.8-4.8); Lymphocytes % 25.4 %; Mean Corpuscular HGB Conc 33.6 g/dL (30-55); Mean Corpuscular Hemoglobin 31.2 pg (27-33); Mean Corpuscular Volume 92.7 fl (82-101); Mean Platelet Volume 11.2 fL (7.4-10.4); Monocytes # 0.6 10^3/uL (0.2-0.9); Monocytes % 6.5 %; Neutrophils # 5.93 10^3/uL (1.8-7.7); Neutrophils % 66.7 %; Nucleated Red Blood Cells % 0 %; Platelet Count 171 10^3/cmm (157-399); Red Blood Count 4.94 10^6/uL (3.85-5.65); Red Cell Distribution Width 15.3 % (12.1-15.1)
[2024-07-16 13:42] LABS: INR 1.45 (0.8-1.2)
[2024-07-16 13:53] LABS: Acetaminophen < 5.0 ug/mL (10-30); Alanine Aminotransferase 15 U/L (0-41); Albumin Level 4.6 g/dL (3.5-5.2); Alcohol Level < 10 mg/dL (0-10); Alkaline Phosphatase 87 U/L (40-130); Anion Gap 16.9 (5-19); Aspartate Amino Transferase 24 U/L (0-40); Blood Urea Nitrogen 9 mg/dL (6-20); Calcium 9.2 mg/dL (8.5-10.5); Carbon Dioxide 24 mmol/L (22-29); Chloride 103 mmol/L (98-107); Creatinine Clr Calc Pharmacy 102.1034; Globulin 3.1 g/dL (1.3-4.6); Glomerular Filtration Rate 87.6 mL/min (90-130); Glucose 147 mg/dL (65-115); Osmolality Calculated 291 mOsm/kg (285-295); Potassium 3.9 mmol/L (3.5-5.1); Salicylate < 0.3 mg/dL (3-10); Sodium 140 mmol/L (136-145); Total Bilirubin 0.6 mg/dL (0.15-1.2); Total Protein 7.7 g/dL (6.6-8.7)
--- NOTE | 2024-07-16 15:12 | PC.NURSE ---
TREASURY CONSULTANT AND SECURITY TO ROOM TO READ PT 96 HOUR HOLD RIGHTS. THIS RN READ PT RIGHTS TO PT PER HIS REQUEST DUE TO HAVING 3 STROKES AND NOT READING WELL. PT HAD NO QUESTIONS AND IS COOPERATIVE AT THIS TIME.
[2024-07-16 15:20] VITALS: BP 162/109; PULSE 96; RESP 18; TEMP 36.9; O2SAT 98
[2024-07-16] MEDS: warfarin 4 mg Tablet PO (18:49)
[2024-07-16 19:32] VITALS: BP 144/84; PULSE 94; RESP 18; TEMP 37; O2SAT 97
[2024-07-16] MEDS: atorvastatin 40 mg Tablet 80 MG PO (21:35)
[2024-07-17 06:00] VITALS: BP 152/86; PULSE 87; RESP 18; TEMP 36.9; O2SAT 97
[2024-07-17] MEDS: aspirin 81 mg Chew Tablet PO (08:19)
[2024-07-17] MEDS: metoprolol succinate ER (24 HR) 25 mg Tablet PO (08:19)
[2024-07-17 08:33] LABS: INR 1.29 (0.8-1.2)
--- NOTE | 2024-07-17 12:01 | P.NPUHP_ITS ---
Providers/Chief Complaint 2 Admitting Physician: Kalin Zuñiga MD Chief Complaint: 96 HPI NPU History of Present Illness Stepan Boyce is a 54 year old male with no previous history of inpatient or outpatient psychiatric treatment who presented to the emergency department after being placed on a 96-hour hold. The patient's ex-girlfriend had provided a statement stating that the patient had placed a gun to his head and attempted to kill himself. The patient had in this report made threats to harm others. The patient had reported on interview today that he had been broken up from this girlfriend of several years since January 2024. He reports that he has limited contact with her as they share 2 children together and he reports that the children who live with him at this time as the ex-girlfriend has been working at nights. He reports that he had indicated that he wanted his children to go with him over the summer to [facility] and the ex-girlfriend had disagreed with this decision and was attempting in someway to prevent him from going with his children. The patient reports that he has no problems currently with his mood. He did report having some recent memory problems since his stroke that was documented as a subacute infarction earlier in 2023. He reports that he has been getting better. He denies any problems with alcohol use or any drug use. The patient is here drug screen was negative on admission. He denied any symptoms suggestive of PTSD. He denied any history of psychosis. He denies any thoughts of hurting himself or others. He had reported concern that his ex- girlfriend was somehow trying to put the patient in a position where he would have to give financial support to her. He denies any thoughts of hurting his ex-girlfriend. He denies any feelings of hopelessness or worthlessness. He denies any problems with mood instability. Inpatient psychiatric history: None Outpatient psychiatric history: None Substance abuse history: He reports occasional alcohol use. He has no history of drug or alcohol treatment. He denies any illicit substance use. Medical history: History of left-sided CVA, hypertension, aortic stenosis, chronic atrial fibrillation, tendinitis of right rotator cuff Surgical history: History of right shoulder surgery Legal history: None Family psychiatric history: None Medications: Atorvastatin, metoprolol, warfarin, Augmentin Allergies: No known drug allergies Social history: No history of developmental delays. He was born in [facility] and raised by his biological parents. He reports that he was in the [employer] and served in the [employer]. He reported no prior history of trauma. He had reported coming here by boat shortly after 1989. He reports having previously been . He has 2 children ages 10 and 8. He reports that he is now on SSI disability. 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 He reports no financial concerns at this time. He had reported that he had broken up with his ex-girlfriend but continues to have his 2 children residing with him at this time. Meds NPU Home Medications ?Medication ?Instructions ?Recorded ?Confirmed ?Last Taken ?Type atorvastatin 80 mg tablet 80 mg PO BEDTIME 05/20/2303/16/24 History metoprolol succinate 25 mg 25 mg PO DAILY 05/20/2303/18/24 07:15 History tablet,extended release 24 hr acetaminophen 500 mg tablet 1,000 mg PO Q6H PRN Pain 0 09/10/23 07/16/24 03/03/24 History warfarin 4 mg tablet 4 mg PO QPM 09/10/23 5 03/12/24 History aspirin 81 mg tablet,delayed 81 mg PO DAILY 03/12/24 0 07/16/24 03/16/24 History release (Enteric Coated Aspirin) warfarin 4 mg tablet (Jantoven) See Rx Instructions .R oute .COMPLEX 07/16/24 07/17/24 07/16/24 18:50 History 4 mg Allergies Allergy/AdvReac Type Severity Reaction Status Date / Time No Known Allergies Allergy Verified 06/22/24 08:08 PFSH NPU 2 PFSH: Medical History Tendinitis of right rotator cuff Arthritis of right acromioclavicular joint Chronic atrial fibrillation Surgical History History of repair of right rotator cuff 07/2022 Social History Smoking and tobacco/nicotine status: current every day tobacco/nicotine user Mental Status Exam 2 MSE Comments: The patient was pleasant cooperative male who appeared his stated age. He was alert and oriented to person, place, time and situation. There was no evidence of any abnormal involuntary motor movements tics or tremors appreciated. His speech was normal in regards to rate rhythm and prosody. His mood was described as okay. His affect was euthymic and pleasant. There was no evidence of delusional thinking. He did not appear to be responding to internal stimuli. His thought process was linear logical and goal-directed. His thought content showed no evidence of homicidal or suicidal ideation. His attention span appeared adequate. His insight was fair. His judgment appeared fair. His impulse control appeared fair. Vitals/I&O/Wt Last Vital Signs Temp 98.4 F 07/17/24 06:00 Pulse 87 07/17/24 06:00 Resp 18 07/17/24 06:00 BP 152/86 07/17/24 06:00 Pulse Ox 97 07/17/24 06:00 O2 Del Method Room Air 07/17/24 06:00 Weight last 48 hrs Weight 81.647 kg Data NPU 07/16/24 13:02 07/16/24 13:02 A&P Assessment and plan (1) Adjustment disorder, unspecified: Plan 54-year-old male admitted on a 96-hour hold with allegations of concerns about suicidality. Patient does not appear to be a candidate for continued hospital stay at this time. 1. discharge today. 96 hour hold to be rescinded. PDMP PDMP Reviewed: Not Reviewed Involuntary Hold Information 2 Hold Status: Legal Status: 96 Hour Hold Date/Time Hold Expires: 07/22/24 1225 Attestations NPU 2 Medical Necessity Statement*: Patient to be discharged today, patient 24 hour evaluation shows no evidence of continued stay. Coding Level of Care Code Acute Code for Chg Fwd Diagnoses Adjustment disorder, unspecified F43.20
--- NOTE | 2024-07-17 12:32 | P.NPUDS_ITS ---
Diagnoses at Discharge Discharge Diagnosis (1) Adjustment disorder, unspecified: Status: Acute Reason for Visit Reason for Visit: 96 Brief History: History of Present Illness Stepan Boyce is a 54 year old male with no previous history of inpatient or outpatient psychiatric treatment who presented to the emergency department after being placed on a 96-hour hold. The patient's ex-girlfriend had provided a statement stating that the patient had placed a gun to his head and attempted to kill himself. The patient had in this report made threats to harm others. The patient had reported on interview today that he had been broken up from this girlfriend of several years since January 2024. He reports that he has limited contact with her as they share 2 children together and he reports that the children who live with him at this time as the ex-girlfriend has been working at nights. He reports that he had indicated that he wanted his children to go with him over the summer to [facility] and the ex-girlfriend had disagreed with this decision and was attempting in someway to prevent him from going with his children. The patient reports that he has no problems currently with his mood. He did report having some recent memory problems since his stroke that was documented as a subacute infarction earlier in 2023. He reports that he has been getting better. He denies any problems with alcohol use or any drug use. The patient is here drug screen was negative on admission. He denied any symptoms suggestive of PTSD. He denied any history of psychosis. He denies any thoughts of hurting himself or others. He had reported concern that his ex- girlfriend was somehow trying to put the patient in a position where he would have to give financial support to her. He denies any thoughts of hurting his ex-girlfriend. He denies any feelings of hopelessness or worthlessness. He denies any problems with mood instability. Inpatient psychiatric history: None Outpatient psychiatric history: None Substance abuse history: He reports occasional alcohol use. He has no history of drug or alcohol treatment. He denies any illicit substance use. Medical history: History of left-sided CVA, hypertension, aortic stenosis, chronic atrial fibrillation, tendinitis of right rotator cuff Surgical history: History of right shoulder surgery Legal history: None Family psychiatric history: None Medications: Atorvastatin, metoprolol, warfarin, Augmentin Allergies: No known drug allergies Social history: No history of developmental delays. He was born in [facility] and raised by his biological parents. He reports that he was in the [employer] and served in the [employer]. He reported no prior history of trauma. He had reported coming here by boat shortly after 1989. He reports having previously been . He has 2 children ages 10 and 8. He reports that he is now on SSI disability. 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 He reports no financial concerns at this time. He had reported that he had broken up with his ex-girlfriend but continues to have his 2 children residing with him at this time. Hospital Course Hospital Course During the hospitalization, the patient had routine laboratory studies which were within normal limits except for a few outliers.? Additionally, there was a general medical evaluation which was also within normal limits and revealed no new acute processes.? At the time of discharge, lethality was denied. ? Mood and anxiety were well managed.? The patient endorsed a plan to avoid all drugs of abuse and follow up with the aftercare recommendations of the treatment team.? The patient was evaluated and deemed to be absent credible lethality and had achieved the maximum benefit from an inpatient hospitalization, and so was discharged. ? Involuntary Hold Information Hold Status: Legal Status: 96 Hour Hold Date/Time Hold Expires: 07/22/24 1225 Mental Status Exam MSE Comments: The patient was pleasant cooperative male who appeared his stated age. He was alert and oriented to person, place, time and situation. There was no evidence of any abnormal involuntary motor movements tics or tremors appreciated. His speech was normal in regards to rate rhythm and prosody. His mood was described as okay. His affect was euthymic and pleasant. There was no evidence of delusional thinking. He did not appear to be responding to internal stimuli. His thought process was linear logical and goal-directed. His thought content showed no evidence of homicidal or suicidal ideation. His attention span appeared adequate. His insight was fair. His judgment appeared fair. His impulse control appeared fair. Discharge Data Studies Completed and Pending: Pending at discharge Category Date Time Status PT [Prothrombin T emely INR] AM LABS Lab 07/18/24 04:00 Ordered Laboratory Results WBC 8.90 10^3/uL (3.2 9-11.43) 07/16/24 13:02 RBC 4.94 10^6/uL (3.8 5-5.65) 07/16/24 13:02 Hgb 15.40 g/dL (11.27 -16.99) 07/16/24 13:02 Hct 45.8 % (37-53) 07/16/24 13:02 MCV 92.7 fl (82-101) 07/16/24 13:02 MCH 31.2 pg (27-33) 07/16/24 13:02 MCHC 33.6 g/dL (30-55) 07/16/24 13:02 RDW 15.3 % (12.1-15.1 ) H 07/16/24 13:02 Plt Count 171 10^3/cmm (157 -399) 07/16/24 13:02 MPV 11.2 fL (7.4-10.4 ) H 07/16/24 13:02 Neut % (Auto) 66.7 % 07/16/24 13:02 Lymph % (Auto) 25.4 % 07/16/24 13:02 [place] % (Auto) 6.5 % 07/16/24 13:02 Eos % (Auto) 0.4 % 07/16/24 13:02 Baso % (Auto) 0.8 % 07/16/24 13:02 Neut # (Auto) 5.93 10^3/uL (1.8 -7.7) 07/16/24 13:02 Lymph # (Auto) 2.3 10^3/uL (0.8- 4.8) 07/16/24 13:02 [place] # (Auto) 0.6 10^3/uL (0.2- 0.9) 07/16/24 13:02 Eos # (Auto) 0.0 10^3/uL (0.0- 0.8) 07/16/24 13:02 Baso # (Auto) 0.1 10^3/uL (0.0- 0.1) 07/16/24 13:02 Nucleated RBC % (a uto) 0 % 07/16/24 13:02 Nucleated RBCs # 0.0 /100WBC 07/16/24 13:02 PT 17.00 SECONDS (12 .1-14.9) H 07/17/24 07:57 PT Cancelled 07/17/24 07:57 INR 1.29 (0.8-1.2) H 07/17/24 07:57 INR Cancelled 07/17/24 07:57 Sodium 140 mmol/L (136-1 45) 07/16/24 13:02 Potassium 3.9 mmol/L (3.5-5 .1) 07/16/24 13:02 Chloride 103 mmol/L (98-10 7) 07/16/24 13:02 Carbon Dioxide 24 mmol/L (22-29) 07/16/24 13:02 Anion Gap 16.9 (5-19) 07/16/24 13:02 BUN 9 mg/dL (6-20) 07/16/24 13:02 Creatinine 0.9 mg/dL (0.7-1. 2) 07/16/24 13:02 GFR Calculation 87.6 mL/min (90-1 30) L 07/16/24 13:02 Glucose 147 mg/dL (65-115 ) H 07/16/24 13:02 Calculated Osmolal ity 291 mOsm/kg (285- 295) 07/16/24 13:02 Calcium 9.2 mg/dL (8.5-10 .5) 07/16/24 13:02 Total Bilirubin 0.6 mg/dL (0.15-1 .2) 07/16/24 13:02 AST 24 U/L (0-40) 07/16/24 13:02 ALT 15 U/L (0-41) 07/16/24 13:02 Alkaline Phosphata se 87 U/L (40-130) 07/16/24 13:02 Total Protein 7.7 g/dL (6.6-8.7 ) 07/16/24 13:02 Albumin 4.6 g/dL (3.5-5.2 ) 07/16/24 13:02 Globulin 3.1 g/dL (1.3-4.6 ) 07/16/24 13:02 Salicylates < 0.3 mg/dL (3-10 ) L 07/16/24 13:02 Urine Opiates Scre en Negative ng/mL (N egative) 07/16/24 12:42 Acetaminophen < 5.0 ug/mL (10-3 0) L 07/16/24 13:02 Ur Barbiturates Sc reen Negative ng/mL (N egative) 07/16/24 12:42 Ur Phencyclidine S crn Negative ng/mL (N egative) 07/16/24 12:42 Ur Amphetamines Sc reen Negative ng/mL (N egative) 07/16/24 12:42 U Benzodiazepines Scrn Negative ng/mL (N egative) 07/16/24 12:42 Urine Cocaine Scre en Negative ng/mL (N egative) 07/16/24 12:42 U Marijuana (THC) Screen Negative ng/mL (N egative) 07/16/24 12:42 Ethyl Alcohol < 10 mg/dL (0-10) 07/16/24 13:02 Vitals: Last Vital Signs Temp 98.4 F 07/17/24 06:00 Pulse 87 07/17/24 06:00 Resp 18 07/17/24 06:00 BP 152/86 07/17/24 06:00 Pulse Ox 97 07/17/24 06:00 O2 Del Method Room Air 07/17/24 06:00 Discharge Plan Discharge Patient Disposition: Home Condition: Stable Prescriptions: Continued atorvastatin 80 mg tablet 80 mg PO BEDTIME metoprolol succinate 25 mg tablet extended release 24 hr 25 mg PO DAILY aspirin [Enteric Coated Aspirin] 81 mg tablet,delayed release (DR/EC) 81 mg PO DAILY acetaminophen 500 mg Tablet 1,000 mg PO Q6H PRN (Reason: Pain) warfarin 4 mg tablet 4 mg PO QPM warfarin [Jantoven] 4 mg tablet See Rx Instructions .ROUTE .COMPLEX Rx Instructions: PT/INR to be draw in the am then pharmacy to dose after results of lab Discharge Orders: Discharge Order (Routine); Ordered 07/17/24 Ordered By: Kalin Zuñiga Discharge Diet: Usual diet Discharge Activity: Resume usual activity Patient Instructions: Opioid Safety Discharge Attestations NPU Time Spent in Discharge Care*: less than 30 min Specific Discharge Activities: Specific discharge activities: educating patient, discussing with case packer and sealer/social workers/dc planners and documenting/other paperwork Coding Level of Care Code Acute Code for Chg Fwd Diagnoses Adjustment disorder, unspecified F43.20
[2024-07-17 12:41] VITALS: BP 152/86; PULSE 87; RESP 18; TEMP 36.9; O2SAT 97
== END 2024-07-17 13:08 | disposition home or self-care (01) | DRG 882 ==
LOC: ER 13:25 → NP 14:17
PROVIDERS: Admitting Provider Psychiatry & Neurology Psychiatry; Emergency Provider Physician Assistant; Visit Provider Psychiatry & Neurology Psychiatry
DX: F43.20 Adjustment disorder, unspecified (principal); R45.851 Suicidal ideations; I48.20 Chronic atrial fibrillation, unspecified; F17.210 Nicotine dependence, cigarettes, uncomplicated; F10.10 Alcohol abuse, uncomplicated; I69.911 Memory deficit following unspecified cerebrovascular disease; G62.9 Polyneuropathy, unspecified; R79.1 Abnormal coagulation profile; I10 Essential (primary) hypertension; I35.0 Nonrheumatic aortic (valve) stenosis; Z95.2 Presence of prosthetic heart valve; Z79.01 Long term (current) use of anticoagulants
CPT/HCPCS: 36415; 80053; 80306; 80307; 85025; 85610; 99285; J9999

== ENCOUNTER → 2024-08-02 08:48 | Outpatient (BNVA) | payer MEDICARE, SELFPAY | PROVIDERS: Visit Provider Nurse Practitioner | DX: Z98.890 Other specified postprocedural states (principal); M75.81 Other shoulder lesions, right shoulder; M77.12 Lateral epicondylitis, left elbow | CPT/HCPCS: 20610; 99214; J1100; J2795; J3301; J9999 ==

== ENCOUNTER 2024-08-03 05:00 | Outpatient (RCR) | payer MEDICARE, SELFPAY | END 2024-09-01 23:59 | disposition home or self-care (01) | LOC: SOT 05:00 | PROVIDERS: Visit Provider Psychiatry & Neurology Neurology | DX: H53.40 Unspecified visual field defects (principal); I63.9 Cerebral infarction, unspecified | CPT/HCPCS: 97112 ==

== ENCOUNTER 2024-08-03 05:00 | Outpatient (RCR) | payer MEDICARE, SELFPAY | END 2024-09-01 23:59 | disposition home or self-care (01) | LOC: SST 05:00 | PROVIDERS: Visit Provider Psychiatry & Neurology Neurology | DX: I63.9 Cerebral infarction, unspecified (principal) | CPT/HCPCS: 92507 ==

== ENCOUNTER 2024-08-03 05:00 | Outpatient (RCR) | payer MEDICARE, SELFPAY | END 2024-09-01 23:59 | disposition home or self-care (01) | LOC: SPT 05:00 | PROVIDERS: Visit Provider Psychiatry & Neurology Neurology | DX: Z98.890 Other specified postprocedural states (principal); I63.9 Cerebral infarction, unspecified | CPT/HCPCS: 97110; 97164 ==

== ENCOUNTER 2024-08-17 19:08 | Emergency (ER) | payer MEDICARE, SELFPAY ==
--- NOTE | 2024-08-17 | XRR_ITS ---
PROCEDURE INFORMATION: Exam: XR Chest Exam date and time: 08/17/2024 7:50 PM Age: 54 years old Clinical indication: Shortness of breath; Prior surgery; Surgery date: 6+ months; Surgery type: Open heart; Additional info: SOB TECHNIQUE: Imaging protocol: Radiologic exam of the chest. Views: 1 view. COMPARISON: MR shoulder RT wo con* [id number] 10/21/2023 9:37 AM FINDINGS: Lungs: Unremarkable. No consolidation. Pleural spaces: Unremarkable. No pleural effusion. No pneumothorax. Heart/Mediastinum: Postsurgical changes of the mediastinum. Bones/joints: Unremarkable. XR/XR chest 1V portable [id number] IMPRESSION: As above.
[2024-08-17 19:11] VITALS: BP 162/99; PULSE 85; RESP 16; TEMP 36.4; O2SAT 100
[2024-08-17 19:50] LABS: Bilirubin Urine Negative (Negative); Blood Urine 3+ (Negative); Glucose Urine UA Negative (Normal); Ketones Urine Negative (Negative); Leukocyte Esterase Urine Negative (Negative); Nitrate Urine Negative (Negative); Protein Urine Negative (Negative); Specific Gravity, Urine 1.017 (1.005-1.030); Urine Appearance Clear (CLEAR); Urine Color Yellow (Yellow); pH Urine 5.5 (5-7)
[2024-08-17 19:50] LABS: Basophils # 0.1 10^3/uL (0.0-0.1); Basophils % 0.8 %; Eosinophils # 0.2 10^3/uL (0.0-0.8); Eosinophils % 1.4 %; Hematocrit 48.5 % (37-53); Lymphocytes # 3.1 10^3/uL (0.8-4.8); Lymphocytes % 24.1 %; Mean Corpuscular HGB Conc 33.2 g/dL (30-55); Mean Corpuscular Hemoglobin 31.3 pg (27-33); Mean Corpuscular Volume 94.2 fl (82-101); Mean Platelet Volume 11.2 fL (7.4-10.4); Monocytes # 0.9 10^3/uL (0.2-0.9); Neutrophils # 8.57 10^3/uL (1.8-7.7); Neutrophils % 66.4 %; Nucleated Red Blood Cells % 0 %; Platelet Count 152 10^3/cmm (157-399); Red Blood Count 5.15 10^6/uL (3.85-5.65); Red Cell Distribution Width 15.3 % (12.1-15.1)
--- NOTE | 2024-08-17 19:51 | ED_ITS ---
HPI - Abdominal Pain 2 General: Chief Complaint: Abdominal Pain Stated Complaint: L&R side pain Time Seen by Provider: 08/17/24 19:23 Source: patient Mode of arrival: ambulatory Limitations: no limitations History of Present Illness: Patient is a 54-year-old male with history of atrial fibrillation who presents to the Emergency Department complaining of lower abdominal pain beginning earlier this afternoon. States pain began suddenly, is to his bilateral lower quadrants and radiates to both his right and left flank. Notes that he also incidentally took a fingerstick INR and was noted to be greater than 7. He has been holding his Coumadin since noticing this. Also reporting associated nausea and states he is starting to develop some shortness of breath. No history of kidney stones, hematuria or dysuria is reported. No feeling of dizziness or lightheadedness, no chest pain at this time. At this time not reporting any specific alleviating or exacerbating factors other than palpation of the area. No history of previous abdominal surgeries reported. Vitals are unremarkable at this time. Requesting something for pain and nausea. Currently reporting that the pain feels like a squeezing sensation and is severe. MD elicited complaint: abdominal pain and flank pain Onset (ago): hour(s) Pain Consistency: constant Location: RLQ and LLQ Severity: severe Quality: other (Squeezing) Radiation: L flank, R flank and back Exacerbating factors: other (Palpation) Associated Symptoms: Reports nausea; Denies bloating, change in stool character, chills, constipation, diarrhea, dysuria, fever(s), hematochezia and vomiting Related Data Home Medications ?Medication ?Instructions ?Recorded ?Confirmed atorvastatin 80 mg tablet 80 mg PO BEDTIME 05/20/23 metoprolol succinate 25 mg 25 mg PO DAILY 05/20/23 tablet,extended release 24 hr acetaminophen 500 mg tablet 1,000 mg PO Q6H PRN Pain 0 09/10/23 08/02/24 warfarin 4 mg tablet 4 mg PO QPM 09/10/23 5 aspirin 81 mg tablet,delayed 81 mg PO DAILY 03/12/24 0 08/02/24 release (Enteric Coated Aspirin) warfarin 4 mg tablet (Jantoven) See Rx Instructions .R oute .COMPLEX 07/16/24 08/02/24 Previous Rx's ?Medication ?Instructions ?Recorded ondansetron 4 mg disintegrating 4 mg PO TID PRN nausea and 08/17/24 tablet vomiting #30 tabs Allergies Allergy/AdvReac Type Severity Reaction Status Date / Time No Known Allergies Allergy Verified 08/17/24 19:17 Review of Systems 2 General: Reports: 10 or more systems reviewed and unremarkable except in HPI and below Const: Denies: fever(s), chills, change in appetite, change in weight or diaphoresis ENMT: Denies: throat pain or hoarseness Card: Denies: chest pain, palpitations or lightheadedness Resp: Reports: dyspnea; Denies: productive cough or wheezing GI: Reports: abdominal pain and nausea; Denies: vomiting, diarrhea, constipation, bloating, change in stool character or hematochezia : Reports: flank pain; Denies: difficulty urinating, dysuria, urinary frequency or urinary urgency Musc: Reports: back pain; Denies: neck pain Skin/Breast: Denies: rash or new lesions Neuro: Denies: headache(s) or dizziness PFSH ED 2 PFSH: Medical History Left tennis elbow Tendinitis of right rotator cuff Arthritis of right acromioclavicular joint Chronic atrial fibrillation Surgical History History of repair of right rotator cuff 07/2022 Social History Smoking and tobacco/nicotine status: current every day tobacco/nicotine user Physical Exam 2 Const: COMMON NORMALS: average body habitus, patient oriented x3, no limitations, alert and well nourished GENERAL APPEARANCE: cooperative O RIENTATION/CONSCIOUSNESS: Yes awake OTHER: Appears uncomfortable HENMT: COMMON NORMALS: normocephalic, atraumatic, hearing grossly normal bilaterally, external ears normal, Normal external nose present, Normal nasal mucous membranes and turbinates present and moist oral mucous membranes HEAD & SCALP: normocephalic and atraumatic NOSE: Normal external nose present and Normal nasal mucous membranes and turbinates present EXTERNAL EAR: Yes external ears normal Eye: COMMON NORMALS: Equal, round and reactive pupils present, EOMs intact bilaterally, conjunctivae normal and normal visual whiting by confrontation C ONJUNCTIVA: Yes conjunctivae normal PUPIL: Yes Equal, round and reactive pupils present Neck/C-Spine: COMMON NORMALS: full ROM, supple, no meningeal signs and no JVD Resp: COMMON NORMALS: normal respiratory effort, No retractions, No use of accessory muscles and clear to auscultation bilaterally AUSCULTATION: clear to auscultation bilaterally, no crackles, no rales, no rhonchi and no wheezes Cardio: COMMON NORMALS: no JVD, regular rate and Peripheral pulses 2+ throughout RATE: regular rate RHYTHM: abnormal rhythm irregularly irregular PERIPHERAL PULSES: Peripheral pulses 2+ throughout OTHER: Pansystolic murmur GI: COMMON NORMALS: Normal to inspection, nondistended, normoactive bowel sounds present, Soft to palpation, No hepatosplenomegaly present and no masses AUSCULTATION: Yes normoactive bowel sounds PALPATION: Yes Soft to palpation, Yes Tenderness to palpation present (GI) (Diffusely tender, worse to bilateral lower quadrants), Yes Guarding due to palpation present (GI) (Involuntary), No Rigid due to palpation and Yes No hepatosplenomegaly present RECTAL EXAM: Yes deferred : COMMON NORMALS: Yes no CVA tenderness BLADDER/KIDNEY EXAM: Yes no CVA tenderness Back/Pelvis: COMMON NORMALS: no CVA tenderness Extremity: COMMON NORMALS: normal to inspection and full ROM Neuro: COMMON NORMALS: patient oriented x3, moves all extremities, no focal motor deficits and no sensory deficits noted SENSORIUM/ORIENTATION: Yes alert MENINGEAL SIGNS: Yes no meningeal signs Psych: COMMON NORMALS: mental status grossly normal, cooperative and speech normal SPEECH: Yes normal speech Skin: COMMON NORMALS: no rashes or lesions noted GENERAL SKIN EXAM: no rashes or lesions noted Course 2 Vital Signs: Vital signs: Vital Signs Temperature 97.5 F L 08/17/24 19:11 Pulse Rate 78 08/17/24 20:08 Respiratory Rate 19 H 08/17/24 19:59 Blood Pressure 147/89 08/17/24 20:08 Pulse Oximetry 96 08/17/24 20:08 Oxygen Delivery Me thod Room Air 08/17/24 20:08 MDM - Abdominal Pain Medical Decision Making Patient presenting with lower abdominal pain, history of A-fib on anticoagulant. Of note he took fingerstick INR couple days ago was noted to be 7.5 he was told to hold his warfarin for couple days by PCP. Patient here reporting bilateral lower quadrant pain with pain into his flanks, however no urinary symptoms. Was noting nausea and new onset shortness of breath, IV was placed. CBC ultimately unremarkable, very mild increase in white blood cell count. His INR noted to be decreased down to 4, from reported abnormal value from a day ago. His metabolic panel unremarkable and urinalysis showed greater than 100 red blood cells. Did not report any obvious hematuria or other urinary symptoms. CT chest abdomen pelvis showed no abnormalities. EKG obtained reviewed physician was unremarkable. His troponin was also normal. He was given morphine and Zofran here, notes improvement upon recheck. Of note also states he recently ate sushi for the first time and thinks that he had food poisoning, other benign etiologies to be considered at this time such as musculoskeletal abdominal pain or mild colitis not seen on CT. However due to his hematuria, asymptomatic, and being on anticoagulant will be referred to urology for reevaluation and to make sure this resolves. It is also likely he passed a kidney stone and this is a result in the blood and improvement of his symptoms. However with no emergent abdominal findings on CT, or abnormalities with lab work will be allowed discharge home at this time in stable condition. Discussed with the patient return precautions and to continue holding his Coumadin as instructed, he verbalized understanding. Discussed case with Dr. Paez. Lab Data 08/17/24 19:40 08/17/24 19:40 Labs/Radiology: Radiology Impressions Chest/Abdomen/Pelvis CT 08/17/24 19:52 IMPRESSION: No acute findings. IMPRESSION: No acute findings. Laboratory Results WBC 12.90 10^3/uL (3.29-11.43) H 08/17/24 19:40 RBC 5.15 10^6/uL (3.85-5.65) 08/17/24 19:40 Hgb 16.10 g/dL (11.27-16.99) 08/17/24 19:40 Hct 48.5 % (37-53) 08/17/24 19:40 MCV 94.2 fl (82-101) 08/17/24 19:40 MCH 31.3 pg (27-33) 08/17/24 19:40 MCHC 33.2 g/dL (30-55) 08/17/24 19:40 RDW 15.3 % (12.1-15.1) H 08/17/24 19:40 Plt Count 152 10^3/cmm (157-399) L 08/17/24 19:40 MPV 11.2 fL (7.4-10.4) H 08/17/24 19:40 Neut % (Auto) 66.4 % 08/17/24 19:40 Lymph % (Auto) 24.1 % 08/17/24 19:40 [place] % (Auto) 7.0 % 08/17/24 19:40 Eos % (Auto) 1.4 % 08/17/24 19:40 Baso % (Auto) 0.8 % 08/17/24 19:40 Neut # (Auto) 8.57 10^3/uL (1.8-7.7) H 08/17/24 19:40 Lymph # (Auto) 3.1 10^3/uL (0.8-4.8) 08/17/24 19:40 [place] # (Auto) 0.9 10^3/uL (0.2-0.9) 08/17/24 19:40 Eos # (Auto) 0.2 10^3/uL (0.0-0.8) 08/17/24 19:40 Baso # (Auto) 0.1 10^3/uL (0.0-0.1) 08/17/24 19:40 Nucleated RBC % (auto) 0 % 08/17/24 19:40 Nucleated RBCs # 0.0 /100WBC 08/17/24 19:40 PT 43.30 SECONDS (12.1-14.9) H 08/17/24 19:40 INR 4.28 (0.8-1.2) H 08/17/24 19:40 Sodium 142 mmol/L (136-145) 08/17/24 19:40 Potassium 4.1 mmol/L (3.5-5.1) 08/17/24 19:40 Chloride 108 mmol/L (98-107) H 08/17/24 19:40 Carbon Dioxide 18 mmol/L (22-29) L 08/17/24 19:40 Anion Gap 20.1 (5-19) H 08/17/24 19:40 BUN 15 mg/dL (6-20) 08/17/24 19:40 Creatinine 0.7 mg/dL (0.7-1.2) 08/17/24 19:40 GFR Calculation 117.1 mL/min (90-130) 08/17/24 19:40 Glucose 96 mg/dL (65-115) 08/17/24 19:40 Calculated Osmolality 295 mOsm/kg (285-295) 08/17/24 19:40 Calcium 9.2 mg/dL (8.5-10.5) 08/17/24 19:40 Total Bilirubin 0.3 mg/dL (0.15-1.2) 08/17/24 19:40 AST 21 U/L (0-40) 08/17/24 19:40 ALT 13 U/L (0-41) 08/17/24 19:40 Alkaline Phosphatase 66 U/L (40-130) 08/17/24 19:40 Troponin T Baseline 10 ng/L (0-15) 08/17/24 19:40 Total Protein 6.7 g/dL (6.6-8.7) 08/17/24 19:40 Albumin 4.4 g/dL (3.5-5.2) 08/17/24 19:40 Globulin 2.3 g/dL (1.3-4.6) 08/17/24 19:40 Lipase 27 U/L (13-60) 08/17/24 19:40 Urine Color Yellow (Yellow) 08/17/24 19:31 Urine Appearance Clear (CLEAR) 08/17/24: Urine pH 5.5 (5-7) 08/17/24: Ur Specific [place] 1.017 (1.005-1.030) 08/17/24 19: Urine Protein Negative (Negative) 08/17/24 19: Urine Glucose (UA) Negative (Normal) 08/17/24: Urine Ketones Negative (Negative) 08/17/24: Urine Blood 3+ (Negative) A 08/17/24 19: Urine Nitrate Negative (Negative) 08/17/24 19: Urine Bilirubin Negative (Negative) 08/17/24: Urine Urobilinogen 1.0 mg/dL (Negative) 08/17/24 19:31 Ur Leukocyte Esterase Negative (Negative) 08/17/24 19:31 Urine RBC >100 /hpf (0-2) H 08/17/24 19:31 Urine WBC 0-5 /hpf (0-5) 08/17/24 19:31 Ur Squamous Epith Cells 0-5 /hpf (0-5) 08/17/24 19:31 Amorphous Sediment Not Reportable 08/17/24 19:31 Urine Bacteria None seen /hpf (NONE) 08/17/24 19:31 Hyaline Casts 0-4 /lpf H 08/17/24 19:31 All radiology interpretation(s) finalized by discharge Discharge Plan Discharge Patient Disposition: Home Clinical Impression: Anticoagulant long-term use Abdominal pain Qualifiers: Abdominal location: lower abdomen, unspecified Qualified Code(s): R10.30 - Lower abdominal pain, unspecified Hematuria Qualifiers: Hematuria type: asymptomatic microscopic Qualified Code(s): R31.21 - Asymptomatic microscopic hematuria Condition: Stable Prescriptions: New ondansetron 4 mg tablet,disintegrating 4 mg PO TID PRN (Reason: nausea and vomiting) Qty: 30 0RF No Action atorvastatin 80 mg tablet 80 mg PO BEDTIME metoprolol succinate 25 mg tablet extended release 24 hr 25 mg PO DAILY aspirin [Enteric Coated Aspirin] 81 mg tablet,delayed release (DR/EC) 81 mg PO DAILY acetaminophen 500 mg Tablet 1,000 mg PO Q6H PRN (Reason: Pain) warfarin 4 mg tablet 4 mg PO QPM warfarin [Jantoven] 4 mg tablet See Rx Instructions .ROUTE .COMPLEX Rx Instructions: PT/INR to be draw in the am then pharmacy to dose after results of lab Discharge Orders: Discharge ED (Routine); Ordered 08/17/24 Ordered By: Galindo Patrick Referrals: Caitlin Jaramillo MD [Primary Care Provider] - Patient Instructions: Hematuria (ED), Abdominal Pain (ED) Activity Restrictions/Additional Instructions: Continue holding your warfarin as you are instructed. Zofran for nausea. Follow-up with urology for reevaluation as we discussed. Ibuprofen and Tylenol at home. Return with any new or worsening symptoms. See the attached patient instructions for further education. Print Language: Macedonian Coding Level of Care Code ED Electronic Warfare Technician for Daija Nettles
--- NOTE | 2024-08-17 19:52 | CTR_ITS ---
PROCEDURE INFORMATION: Exam: CT Chest With Contrast; Diagnostic Exam date and time: 08/17/2024 8:34 PM Age: 54 years old Clinical indication: Abdominal pain; Generalized; Right-sided and left-sided; Prior surgery; Surgery date: 6+ months; Surgery type: Inguinal hernia, appy, mechanical heart valve; Additional info: SOB, severe lower abd pain TECHNIQUE: Imaging protocol: Diagnostic computed tomography of the chest with contrast. Radiation optimization: All CT scans at this facility use at least one of these dose optimization techniques: automated exposure control; mA and/or kV adjustment per patient size (includes targeted exams where dose is matched to clinical indication); or iterative reconstruction. Contrast material: OMNIPAQUE 350; Contrast volume: 100 ml; Contrast route: INTRAVENOUS (IV); COMPARISON: CR (CHEST, ) 08/17/2024 7:50 PM RADIATION DOSE METRICS: Total DLP (mGy-cm): 1196.28 FINDINGS: Tubes, catheters and devices: Left atrial appendage closure device. Lungs: Centrilobular emphysema. Mild dependent atelectasis in the right lower lobe. Mild linear atelectasis or scar in the lingula. No consolidation. Pleural spaces: Unremarkable. No pneumothorax. No pleural effusion. Heart: Unremarkable. No cardiomegaly. No pericardial effusion. Lymph nodes: Unremarkable. No enlarged lymph nodes. Vasculature: Unremarkable. No aortic aneurysm. Bones/joints: Median sternotomy changes. Mild degenerative changes in the thoracic spine. No fracture. Soft tissues: Unremarkable. COMMENTS: The presence of pulmonary emphysema on CT is an independent risk factor for lung cancer. In the absence of a history or active diagnosis of lung cancer, it is recommended that this patient with emphysema be evaluated for enrollment in a low dose CT lung cancer screening program. PROCEDURE INFORMATION: Exam: CT Abdomen And Pelvis With Contrast Exam date and time: 08/17/2024 8:34 PM Age: 54 years old Clinical indication: Abdominal pain; Generalized; Right-sided and left-sided; Prior surgery; Surgery date: 6+ months; Surgery type: Inguinal hernia, appy, mechanical heart valve; Additional info: SOB, severe lower abd pain TECHNIQUE: Imaging protocol: Computed tomography of the abdomen and pelvis with contrast. Radiation optimization: All CT scans at this facility use at least one of these dose optimization techniques: automated exposure control; mA and/or kV adjustment per patient size (includes targeted exams where dose is matched to clinical indication); or iterative reconstruction. Contrast material: OMNIPAQUE 350; Contrast volume: 100 ml; Contrast route: INTRAVENOUS (IV); COMPARISON: CR (CHEST, ) 08/17/2024 7:50 PM RADIATION DOSE METRICS: Total DLP (mGy-cm): 1196.28 FINDINGS: Liver: Normal. No mass. Gallbladder and biliary ducts: Normal. No calcified stones. No ductal dilation. Pancreas: Normal. No ductal dilation. Spleen: Normal. No splenomegaly. Adrenal glands: Normal. No mass. Kidneys and ureters: Small linear hypodensity in the posterior right kidney, most likely a chronic scar. No calculus or hydronephrosis. Stomach and bowel: Unremarkable. No obstruction. No mucosal thickening. Appendix: The appendix is not visualized. No secondary signs of appendicitis. Intraperitoneal space: Unremarkable. No free air. No significant fluid collection. Vasculature: Retroaortic left renal vein. No aneurysm. Lymph nodes: Unremarkable. No enlarged lymph nodes. Urinary bladder: Unremarkable as visualized. Reproductive: Unremarkable as visualized. Bones/joints: Mild degenerative changes in the spine. No fracture. Soft tissues: Previous right inguinal hernia repair. CT/CT chest abdpel w/*[id number] IMPRESSION: No acute findings. IMPRESSION: No acute findings.
[2024-08-17 19:55] LABS: Add Urine Microscopic? YES; Bacteria Urine None Seen /hpf; Hyaline Casts Urine 0-4 /lpf; RBC Urine >100 /hpf (0-2); Squamous Epithelial Cell Urine 0-5 /hpf (0-5); WBC Urine 0-5 /hpf (0-5)
[2024-08-17] MEDS: ondansetron 2 mg/ML SDV 2 mL 8 MG IVP (19:58)
[2024-08-17 19:59] VITALS: RESP 19; O2SAT 97
[2024-08-17 19:59] LABS: Add Urine Culture? Yes
[2024-08-17] MEDS: morphine 4 mg/mL SDV 1 mL IVP (19:59)
[2024-08-17 20:02] LABS: INR 4.28 (0.8-1.2)
[2024-08-17 20:06] LABS: Troponin(5th) Baseline 10 ng/L (0-15)
[2024-08-17 20:08] VITALS: BP 147/89; PULSE 78; O2SAT 96
--- NOTE | 2024-08-17 20:10 | ECG_ITS ---
[facility]: 2024-08[facility]17 Pat Name: Stepan Boyce Department: Room: Gender: Male Health Services Rn: : 1970 Requested By: Galindo Hines Order Number: [id number] Gerry MD: Dinora Barlow M.D. Measurements Intervals [place] Rate: 76 P: 148 VA: 173 QRS: 147 QRSD: 110 T: 152 QT: 368 QTc: 415 Interpretive Statements SINUS RHYTHM possible left atrial enlargement ARM LEADS REVERSED [INVERTED P AND QRS IN I] Compared to ECG 09/10/2023 11:31:56 Atrial flutter no longer present Incomplete right bundle-branch block no longer present T-wave abnormality no longer present Possible ischemia no longer present Electronically Signed On 08-18-2024 21:28:21 CDT by Dinora Barlow M.D. [id number]
[2024-08-17 20:19] LABS: Albumin Level 4.4 g/dL (3.5-5.2); Alkaline Phosphatase 66 U/L (40-130); Blood Urea Nitrogen 15 mg/dL (6-20); Calcium 9.2 mg/dL (8.5-10.5); Carbon Dioxide 18 mmol/L (22-29); Chloride 108 mmol/L (98-107); Creatinine Clr Calc Pharmacy 140.4551; Globulin 2.3 g/dL (1.3-4.6); Glomerular Filtration Rate 117.1 mL/min (90-130); Glucose 96 mg/dL (65-115); Lipase 27 U/L (13-60); Osmolality Calculated 295 mOsm/kg (285-295); Sodium 142 mmol/L (136-145); Total Bilirubin 0.3 mg/dL (0.15-1.2); Total Protein 6.7 g/dL (6.6-8.7)
[2024-08-17 20:27] LABS: Alanine Aminotransferase 13 U/L (0-41); Anion Gap 20.1 (5-19); Aspartate Amino Transferase 21 U/L (0-40); Potassium 4.1 mmol/L (3.5-5.1)
[2024-08-17] MEDS: iohexol 350 mg/mL 500 mL Btl (per mL) IV (20:36)
[2024-08-17] MEDS: ketorolac 30 mg/mL INJ IVP (21:46)
[2024-08-17 21:51] VITALS: BP 142/101; PULSE 72; O2SAT 98
--- NOTE | 2024-08-19 13:04 | DCPLANNER ---
faxed referral packet to [facility] [phone]. and pushed images
== END 2024-08-17 21:53 | disposition home or self-care (01) ==
PROVIDERS: Emergency Medicine; Emergency Provider Physician Assistant; PCP Family Medicine
DX: Z79.01 Long term (current) use of anticoagulants (principal); R10.30 Lower abdominal pain, unspecified; R31.21 Asymptomatic microscopic hematuria; Z79.82 Long term (current) use of aspirin; Z72.0 Tobacco use
CPT/HCPCS: 36415; 71045; 71260; 74177; 80053; 81001; 83690; 84484; 85025; 85610; 87086; 93005; 96374; 96375; 99285; J1885; J2270; J2405

== ENCOUNTER 2024-08-27 08:30 | Outpatient (CLI) | payer MEDICARE, SELFPAY ==
[2024-08-27 08:58] LABS: INR 3.39 (0.8-1.2)
== END 2024-08-27 08:31 | disposition home or self-care (01) ==
LOC: LAB 08:47
PROVIDERS: PCP Family Medicine; Visit Provider Family Medicine
DX: I48.20 Chronic atrial fibrillation, unspecified (principal)
CPT/HCPCS: 85610

== ENCOUNTER 2024-09-02 05:00 | Outpatient (RCR) | payer MEDICARE, SELFPAY | END 2024-10-02 23:59 | disposition home or self-care (01) | LOC: SST 05:00 | PROVIDERS: PCP Family Medicine; Visit Provider Psychiatry & Neurology Neurology | DX: I63.9 Cerebral infarction, unspecified (principal) | CPT/HCPCS: 92507 ==

== ENCOUNTER 2024-09-02 05:00 | Outpatient (RCR) | payer MEDICARE, SELFPAY | END 2024-10-02 23:59 | disposition home or self-care (01) | LOC: SPT 05:00 | PROVIDERS: PCP Family Medicine; Visit Provider Psychiatry & Neurology Neurology | DX: I63.9 Cerebral infarction, unspecified (principal); Z98.890 Other specified postprocedural states | CPT/HCPCS: 97110 ==

== ENCOUNTER 2024-10-03 05:00 | Outpatient (RCR) | payer MEDICARE, SELFPAY | END 2024-11-01 23:59 | disposition home or self-care (01) | LOC: SST 05:00 | PROVIDERS: PCP Family Medicine; Visit Provider Psychiatry & Neurology Neurology | DX: I63.9 Cerebral infarction, unspecified (principal) | CPT/HCPCS: 92507 ==

== ENCOUNTER 2024-10-08 09:00 | Outpatient (CLI) | payer MEDICARE, SELFPAY ==
[2024-10-08 09:35] LABS: INR 3.27 (0.8-1.2)
== END 2024-10-08 09:01 | disposition home or self-care (01) ==
LOC: LAB 09:07
PROVIDERS: PCP Family Medicine; Visit Provider Family Medicine
DX: I48.20 Chronic atrial fibrillation, unspecified (principal)
CPT/HCPCS: 85610

== ENCOUNTER 2024-11-02 05:00 | Outpatient (RCR) | payer MEDICARE, SELFPAY | END 2024-12-02 23:59 | disposition home or self-care (01) | LOC: SST 05:00 | PROVIDERS: PCP Family Medicine; Visit Provider Psychiatry & Neurology Neurology | DX: I69.320 Aphasia following cerebral infarction (principal) | CPT/HCPCS: 92507 ==

== ENCOUNTER → 2024-11-08 08:03 | Outpatient (BNVA) | payer MEDICARE, SELFPAY | PROVIDERS: PCP Family Medicine; Visit Provider Nurse Practitioner | DX: M75.81 Other shoulder lesions, right shoulder (principal); Z98.890 Other specified postprocedural states | CPT/HCPCS: 20610; 99213 ==

== ENCOUNTER → 2024-11-15 09:24 | Outpatient (BNVA) | payer MEDICARE, SELFPAY | PROVIDERS: PCP Family Medicine; Visit Provider Nurse Practitioner | DX: M19.012 Primary osteoarthritis, left shoulder (principal); R20.2 Paresthesia of skin | CPT/HCPCS: 73030; 99214 ==

== ENCOUNTER → 2024-11-18 14:07 | Outpatient (BNVA) | payer MEDICARE, SELFPAY | PROVIDERS: PCP Family Medicine; Visit Provider Podiatrist Foot & Ankle Surgery | DX: M79.671 Pain in right foot (principal); G57.61 Lesion of plantar nerve, right lower limb; G62.9 Polyneuropathy, unspecified; Z86.73 Personal history of transient ischemic attack (TIA), and cerebral infarction without residual deficits; M79.672 Pain in left foot | CPT/HCPCS: 73630; 99213 ==

== ENCOUNTER 2024-11-30 07:50 | Outpatient (CLI) | payer MEDICARE, SELFPAY ==
--- NOTE | 2024-11-30 08:00 | MR_ITS ---
WS: [id number] MRI RIGHT FOOT WITHOUT CONTRAST. COMPARISON: 11/18/2024 Multiplanar, multisequence imaging is performed without contrast. No acute marrow edema or fractures. Normal alignment at the tarsometatarsal articulation. Minimal subchondral cysts are noted in the first metatarsal head. The visualized Achilles tendon and the plantar aponeurosis are normal. Lisfranc ligament is limited due to patient motion and quality of this MRI examination. No secondary findings of a Lisfranc ligament injury. No soft tissue edema. No coalition identified. There is no muscle atrophy or asymmetry. The visualized flexor and extensor tendons appear normal. MR/MR foot RT wo con* [id number] IMPRESSION: 1. No signal abnormality within the bones or soft tissues of the RIGHT foot. 2. There is no marrow edema or fracture. 3. Mild degenerative changes in the first metatarsal head. 4. No signal abnormality within the ligaments or tendons. 5. Poorly visualized Lisfranc ligament but no secondary findings of injury.
== END 2024-11-30 07:51 | disposition home or self-care (01) ==
LOC: RAD 07:53
PROVIDERS: PCP Family Medicine; Visit Provider Podiatrist Foot & Ankle Surgery
DX: G57.61 Lesion of plantar nerve, right lower limb (principal); M19.071 Primary osteoarthritis, right ankle and foot
CPT/HCPCS: 73718

== ENCOUNTER 2024-12-03 05:00 | Outpatient (RCR) | payer MEDICARE, SELFPAY | END 2025-01-02 23:59 | disposition home or self-care (01) | LOC: SST 05:00 | PROVIDERS: PCP Family Medicine; Visit Provider Psychiatry & Neurology Neurology | DX: I69.320 Aphasia following cerebral infarction (principal) | CPT/HCPCS: 92507 ==

== ENCOUNTER → 2024-12-07 15:24 | Outpatient (BNVA) | payer MEDICARE, SELFPAY | PROVIDERS: PCP Family Medicine; Visit Provider Psychiatry & Neurology Neurology | DX: I63.9 Cerebral infarction, unspecified (principal); I10 Essential (primary) hypertension; I35.0 Nonrheumatic aortic (valve) stenosis; I48.20 Chronic atrial fibrillation, unspecified; G45.9 Transient cerebral ischemic attack, unspecified; R20.2 Paresthesia of skin; H53.40 Unspecified visual field defects; Z98.890 Other specified postprocedural states | CPT/HCPCS: G0463 ==

== ENCOUNTER → 2024-12-23 10:58 | Outpatient (BNVA) | payer MEDICARE, SELFPAY | PROVIDERS: PCP Family Medicine; Visit Provider Podiatrist Foot & Ankle Surgery | DX: G57.61 Lesion of plantar nerve, right lower limb (principal); G62.9 Polyneuropathy, unspecified; Z86.73 Personal history of transient ischemic attack (TIA), and cerebral infarction without residual deficits | CPT/HCPCS: 20550; 64455; 99214; J1100; J3301; J9999 ==

== ENCOUNTER 2024-12-27 08:10 | Emergency (ER) | payer MEDICARE, SELFPAY ==
--- OUTSIDE RECORDS SUMMARY | 2024-12-27 08:25 | XMS_ITS | Encounter Summary ---
Author Organization [facility] Address [address] [place] [address] Care Team Providers Care Etcher Apprentice Photoengraving Name Role Phone Unavailable Primary Care Provider Unavailabl e Encounter Details Date Type Department Care Team (Late st Contact Info) Description 12/21/2024 External Device Data [facility] ABSTRACTION Provider, Abstract NO ADDRESS ON FILE Social History Tobacco Use Types Packs/Day Years Used Date Smoking Tobacco: Every Day Cigarettes 0.5 42.3 Started: 1981; Last attempted to quit: 08/24/2023 Feeling Safe Answer Date Recorded Are you in a relationship wi th someone who hurts you emotionally and/or physically? 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 Legal Sex Male 2:10 PM NEONATAL SPECIALIST Gender Identity Not on file Sexual Orientation Not on file documented as of this encounter Plan of Treatment Upcoming Encounters Date Type Department Care Team (Late st Contact Info) Description 02/21/2025 1:00 PM CDT Office Visit [facility] [address] [place] [id number] Taran Alexander, [facility] [address] [facility] [address] [place] [phone] documented as of this encounter Visit Diagnoses Not on filedocumented in this encounter
--- OUTSIDE RECORDS SUMMARY | 2024-12-27 08:25 | XMS_ITS | Clinical Summary ---
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 Active metoprolol succinate (TOPROL XL) 25 mg Extended Release 24 hour tablet 25 mg daily. Active acetaminophen (TYLENOL) 500 mg tablet Take 2 Tablets (1,000 mg) by mouth every 6 hours as needed for Pain. 4 Active aspirin (MAINOR CHEWABLE) 81 mg Tablet, Chewable Take 1 Tablet (81 mg) by mouth daily. 4 Active oxyCODONE (ROXICODONE) 5 mg tabletIndicatio ns:Protruding sternal wires, initial encounter Take 1 Tablet (5 mg) by mouth every 4 hours as needed for Pain. Max Daily Amount: 30 mg 35 Tablet 4 Active enoxaparin (LOVENOX) 100 mg/mL injection Inject 0.9 mL (90 mg) by subcutaneous injection every 12 hours. 14 Each 3 4 Active warfarin (COUMADIN) 4 mg tablet Take 2 Tablets (8 mg) by mouth daily. Except 6 mg every W 140 Tablet 1 5 Active Additional Information Patient taking differently:8 mg Oral DAILY,(No instructions reported), Reported on 08/27/2024 Active Problems Problem Noted Date Diagnosed Date Sternal pain 02/23/2024 Protruding sternal wires 02/23/2024 Hypertension 09/01/2023 Atrial fibrillation 09/01/2023 S/P left atrial appendage ligation 09/01/2023 S/P aortic valve replacement 09/01/2023 Acute blood loss anemia 09/01/2023 CONTI (dyspnea on exertion) 07/16/2023 Abnormal cardiovascular stress test 07/16/2023 Aortic stenosis 07/16/2023 Encounters Date Type Department Care Team Description 12/21/2024 External Device Data [facility] ABSTRACTION Provider, Abstract 12/17/2024 Anti-coag visit [facility] [address] [place] [phone] Lima Quiles RN S/P aortic valve replacement (Primary Dx) 11/23/2024 External Device Data [facility] ABSTRACTION Provider, Abstract 11/17/2024 External Device Data [facility] ABSTRACTION Provider, Abstract 11/17/2024 External Device Data [facility] ABSTRACTION Provider, Abstract 11/01/2024 Orders Only [facility] [address] [place] [phone] Anna Morley RN S/P aortic valve replacement 10/26/2024 External Device Data [facility] ABSTRACTION Provider, Abstract 10/25/2024 Orders Only [facility] [address] [place] [phone] Anna Morley RN S/P aortic valve replacement 10/18/2024 Orders Only [facility] [address] [place] [phone] Anna Morley RN S/P aortic valve replacement 10/12/2024 External Device Data ST[facility] ABSTRACTION Provider, Abstract 10/11/2024 Orders Only [facility] [address] [place] [phone] Anna Morley RN S/P aortic valve replacement 10/08/2024 Anti-coag visit [facility] [address] [place] [phone] Marshall Hicks RN S/P aortic valve replacement (Primary Dx) 10/05/2024 External Device Data [facility] ABSTRACTION Provider, Abstract 10/04/2024 Orders Only [facility] [address] [place] [phone] Anna Morley RN S/P aortic valve replacement 09/27/2024 Orders Only [facility] [address] [place] [phone] Anna Morley RN S/P aortic valve replacement from Last 3 Months Social History Tobacco Use Types Packs/Day Years Used Date Smoking Tobacco: Every Day Cigarettes 0.5 42.3 Started: 1981; Last attempted to quit: 08/24/2023 Tobacco Cessation:Ready to Q uit: Not Asked; Counseling Given: Not Answered Feeling Safe Answer Date Recorded Are you [...] Sex Assigned at Male 06/03/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 Sex Male 2:10 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 [employer] Gender Identity Not on file Sexual Orientation Not on file Last Filed Vital Signs Vital Sign Reading Time Taken Comments Blood Pressure 126/82 03/10/2024 1:20 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 [employer]ING [employer] Pulse 72 03/10/2024 1:20 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 [employer]ING [employer]BL[employer] Temperature 36.4 C (97.5 F) 02/23/2024 3:00 PM CDT Respiratory Rate 19 02/23/2024 4:15 PM CDT Oxygen Saturation 97% 03/10/2024 1:20 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 [employer]ING [employer]SEMBL[employer] Inhaled Oxygen Concentration - - Weight 90.7 kg (200 lb) 03/10/2024 1:20 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 [employer]ING [employer] ASSEMBLY Height 180.3 cm (5' 11 ) 03/10/2024 1:20 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 [employer]ING [employer]SEMBLY Body Mass Index 27.89 03/10/2024 1:20 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 [employer]ING [employer]SEMBLY Plan of Treatment Upcoming Encounters Date Type Department Care Team (Late st Contact Info) Description 02/21/2025 1:00 PM CDT Office Visit [facility] [address] [facility] [address] [place] [address] Taran Alexander, MONICA [address] [facility] [address] [place] [address] Health Maintenance Due Date Last Done Comments DTAP/TDAP/TD VACCINES (1 - Tdap) 02/07/1988 HEPATITIS B VACCINES (1 of 3 - 19+ 3-dose series) 09/1987 COLORECTAL SCREENING 2014 Colorectal Cancer Screening 2014 FIT-DNA Q 3 years 2014 FIT/FOBT Q 1 year 2014 Flex Sig/CT Colonography Q 5 years 2014 Lung Cancer Screening 2019 ZOSTER VACCINE (1 of 2) 2019 INFLUENZA VACCINE (#1) 2024 Pre-Diabetes and Diabetes Screening 09/04/202609/04 Medical Devices Implanted Type Area Control Tower Radio Operator Device Identifier Shelf Expiration Date Model / Serial / Lot Atriclip Flex-V Wendie Exclusion 50mm Achv50 - [id number] Implanted:Qty : 1 on 09/01/2023 by Saúl Redding DO at [facility] Cardiovascular Device N/A: Heart [employer] [id number] 01/03/2026 [id number] / / [id number] Atriclip Flex-V Wendie Exclusion 50mm Achv50 - [id number] Implanted:Qty : 1 on 09/01/2023 by Saúl Redding DO at [facility] Cardiovascular Device N/A: Heart [employer] [id number] 01/03/2026 [id number] / / [id number] Orthostat 2.0gm Os-201 - [id number] Implanted:Qty : 1 on 09/01/2023 by Saúl Redding DO at [facility] Hemostatic N/A: Chest [employer] [id number] 05/04/2026 OS- Orthostat 2.0gm Os-201 - [id number] Implanted:Qty : 1 on 09/01/2023 by Saúl Redding DO at [facility] Hemostatic N/A: Chest [employer] [id number] 05/04/2026 OS Orthostat 2.0gm Os-201 - [id number] Implanted:Qty : 1 on 09/01/2023 by Saúl Redding DO at [facility] Hemostatic N/A: Chest [employer] [id number] 05/04/2026 OS Orthostat 2.0gm Os-201 - [id number] Implanted:Qty : 1 on 09/01/2023 by Saúl Redding DO at [facility] Hemostatic N/A: Chest [employer] [id number] 05/04/2026 Adh Bioglue 10ml [id number] - [id number] Implanted:Qty : 1 on 09/01/2023 by Saúl Redding DO at [facility] Sealant N/A: Chest [employer] (FKA CRYOLIFE) [id number] 11/23/2024 [id number] / / [id number] [facility] Aortic On-X Conform-X-X 19mm Onxa-19 - [id number] Implanted:Qty : 1 on 09/01/2023 by Saúl Redding DO at [facility] Valve N/A: Heart [employer] 06/10/2029 ONXA- / [id number] / Procedures Procedure Name Priority Date/Time Associated Diagnosis Comments POC PROTIME/INR Routine 12/17/2024 POC PROTIME/INR Routine 10/08/2024 8:30 AM CDT HEMOGLOBIN A1C Routine 09/05/2023 5:32 AM CDT from Last 3 Months or Most Recently Relevant to Health Maintenance Results * (ABNORMAL) POC PROTIME/INR (12/17/2024) Only the most recent of2 resultswithin the time period is included. PROTIME POC 37.8 seconds EXTERNAL LAB INR POC 3.2 EXTERNAL LAB Blood, capillary 12/17/2024 Prince Arlyn KIM POINT OF CARE TESTING Final Resu lt Performing Organization Address City/[facility]/ZIP Co de Phone Number EXTERNAL LAB * (ABNORMAL) HEMOGLOBIN A1C (09/05/2023 5:32 AM CDT) HEMOGLOBIN A1C 5.9(H) <=5.6 % 09/08/2023 9:47 AM CDT [facility] EST. AVG GLUCOSE, A1C 123 mg/dL 09/08/2023 9:47 AM CDT [facility] Blood Venipuncture / Unknown 09/05/2023 5:32 AM CDT 09/05/2023 5:57 AM CDT Narrative [facility] - 09/08/2023 9:47 AM CDT HGB A1C INTERPRETATION NORMAL: <5.7% PRE-DIABETES: 5.7 - 6.4% DIABETES: 6.5% OR GREATER Kelsea Vila MD CHEMISTRY ORDERABLES Final Res ult [facility] CLIA # [id number] [address] [address] [place], [place] [address] from Last 3 Months or Most Recently Relevant to Health Maintenance Insurance [facility] EXCHANGE HOME [facility] MEDICAID RX SGF BACTROBAN (INTERNAL) [facility] Internal Plans Advance Directives For more information, please contact: [phone] Documents on File Type Date Recorded 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
[2024-12-27 08:28] VITALS: BP 160/98; PULSE 90; RESP 18; TEMP 36.4; O2SAT 98
--- NOTE | 2024-12-27 08:36 | ED_ITS ---
HPI - General Adult 2 General: Chief complaint: General Medical Stated complaint: brusing on turso on blood thinners Time Seen by Provider: 12/27/24 08:12 History of Present Illness: 54-year-old male presents emergency room his nose bruising on his torso particularly on his right flank he does not recall doing anything he has some of the lines left side of his abdomen and on his arms. He is on Coumadin for mechanical mitral valve he had it checked a couple weeks ago he states it was 3.2 at that time. He has not had any hemoptysis no hematemesis coffee-ground emesis no epistaxis. Patient has not taken his Coumadin for the last 2 days because he had noted the bruising Associated symptoms: Deny chest pain, dyspnea or rash Related Data Home Medications ?Medication ?Instructions ?Recorded ?Confirmed acetaminophen 500 mg tablet 1,000 mg PO Q6H PRN Pain 0 09/10/23 12/27/24 warfarin 4 mg tablet 8 mg PO DAILY 09/10/2312/27 aspirin 81 mg tablet,delayed 81 mg PO DAILY 03/12/24 0 12/27/24 release (Enteric Coated Aspirin) amlodipine 5 mg tablet 5 mg PO DAILY 11/15/2412/27 metoprolol succinate 25 mg 50 mg PO DAILY 11/18/24 tablet,extended release 24 hr sildenafil 50 mg tablet See Rx Instructions .Route . COMPLEX 12/27/24 12/27/24 Previous Rx's ?Medication ?Instructions ?Recorded enoxaparin 100 mg/mL subcutaneous 90 mg (0.9 mL) SUBCU T Q12H #6 mL 12/27/24 syringe (Lovenox) Allergies Allergy/AdvReac Type Severity Reaction Status Date / Time No Known Allergies Allergy Verified 12/23/24 11:06 Review of Systems 2 Const: Denies: fever(s) or chills Card: Denies: chest pain Resp: Denies: dyspnea GI: Denies: abdominal pain : Denies: dysuria, urinary frequency or urinary urgency Musc: Denies: neck pain or back pain Skin/Breast: Denies: rash PFSH ED 2 PFSH: Medical History Left tennis elbow Tendinitis of right rotator cuff Arthritis of right acromioclavicular joint Chronic atrial fibrillation Surgical History History of repair of right rotator cuff 07/2022 Social History Smoking and tobacco/nicotine status: current every day tobacco/nicotine user Physical Exam 2 Const: GENERAL APPEARANCE: cooperative ORIENTATION/CONSCIOUSNESS: Yes awake, Yes oriented to person, Yes oriented to place and Yes oriented to time HENMT: COMMON NORMALS: normocephalic, atraumatic and hearing grossly normal bilaterally HEAD & SCALP: normocephalic and atraumatic Resp: COMMON NORMALS: normal respiratory effort, No retractions, No use of accessory muscles and clear to auscultation bilaterally AUSCULTATION: clear to auscultation bilaterally Cardio: COMMON NORMALS: regular rate, regular rhythm and No murmurs present (Cardio) RATE: regular rate RHYTHM: regular rhythm GI: COMMON NORMALS: Soft to palpation and No hepatosplenomegaly present A USCULTATION: Yes normoactive bowel sounds PALPATION: Yes Soft to palpation, No Tenderness to palpation present (GI), No Guarding due to palpation present (GI) and Yes No hepatosplenomegaly present Extremity: COMMON NORMALS: normal to inspection, capillary refill normal, no clubbing, cyanosis or edema, no calf tenderness and no pedal edema Neuro: SENSORIUM/ORIENTATION: Yes oriented to person, Yes oriented to place and Yes oriented to time Skin: COMMON NORMALS: no rashes or lesions noted GENERAL SKIN EXAM: no rashes or lesions noted Course 2 Vital Signs: Vital signs: Vital Signs Temperature 97.6 F 12/27/24 08:28 Pulse Rate 94 12/27/24 11:52 Respiratory Rate 18 12/27/24 08:28 Blood Pressure 157/92 12/27/24 11:52 Pulse Oximetry 96 12/27/24 11:52 Oxygen Delivery Me thod Room Air 12/27/24 10:00 [facility] - General Adult Medical Decision Making Patient has ecchymosis on the right flank and on but healing area of ecchymosis on the left upper quadrant of the abdomen the remainder of exam is unremarkable. Unfortunately he stopped taking his Coumadin 2 days ago and he is now subtherapeutic. Hemoglobin is stable suspect the bruising came from minor trauma. Will give him Lovenox today discharge him home with Lovenox 90 mg twice a day until he is therapeutic again on his INR discussed with the patient very important to not stop the Coumadin unless specifically directed by a physician due to his mechanical valve and the possible complications he can get from being under anticoagulated. Was able to talk to the patient's hadoop developer from [place] and they will arrange for follow-up and monitoring this week to continue the Lovenox until he becomes therapeutic again. Medical Records I reviewed the patient's medical records. Lab Data I reviewed the patient's lab results. 12/27/24 08:45 Laboratory Results WBC 9.26 10^3/uL (3.29-11.43) 12/27/24 08:45 RBC 5.07 10^6/uL (3.85-5.65) 12/27/24 08:45 Hgb 16.20 g/dL (11.27-16.99) 12/27/24 08:45 Hct 47.4 % (37-53) 12/27/24 08:45 MCV 93.5 fl (82-101) 12/27/24 08:45 MCH 32.0 pg (27-33) 12/27/24 08:45 MCHC 34.2 g/dL (30-55) 12/27/24 08:45 RDW 14.1 % (12.1-15.1) 12/27/24 08:45 Plt Count 180 10^3/cmm (157-399) 12/27/24 08:45 MPV 10.7 fL (7.4-10.4) H 12/27/24 08:45 Neut % (Auto) 63.9 % 12/27/24 08:45 Lymph % (Auto) 26.2 % 12/27/24 08:45 Mineral % (Auto) 7.7 % 12/27/24 08:45 Eos % (Auto) 0.6 % 12/27/24 08:45 Baso % (Auto) 1.1 % 12/27/24 08:45 Neut # (Auto) 5.91 10^3/uL (1.8-7.7) 12/27/24 08:45 Lymph # (Auto) 2.4 10^3/uL (0.8-4.8) 12/27/24 08:45 Mineral # (Auto) 0.7 10^3/uL (0.2-0.9) 12/27/24 08:45 Eos # (Auto) 0.1 10^3/uL (0.0-0.8) 12/27/24 08:45 Baso # (Auto) 0.1 10^3/uL (0.0-0.1) 12/27/24 08:45 Nucleated RBC % (auto) 0 % 12/27/24 08:45 Nucleated RBCs # 0.0 /100WBC 12/27/24 08:45 PT 22.30 SECONDS (12.1-14.9) H 12/27/24 08:45 INR 1.83 (0.8-1.2) H 12/27/24 08:45 All radiology interpretation(s) finalized by discharge Discharge Plan Discharge Patient Disposition: Home Clinical Impression: Subtherapeutic international normalized ratio (INR), Chronic atrial fibrillation, H/O mitral valve replacement with mechanical valve, Ecchymosis Condition: Stable Prescriptions: New enoxaparin [Lovenox] 100 mg/mL syringe 90 mg SUBCUT Q12H Qty: 6 0RF No Action lidocaine HCl 10 mg/mL (1 %) solution 10 ml Infiltration ONCE Qty: 1 0RF triamcinolone acetonide [Kenalog] 40 mg/mL suspension 40 mg Infiltration ONCE Qty: 1 0RF dexamethasone sodium phosphate 4 mg/mL solution 4 mg Infiltration ONCE Qty: 1 0RF metoprolol succinate 25 mg tablet extended release 24 hr 50 mg PO DAILY aspirin [Enteric Coated Aspirin] 81 mg tablet,delayed release (DR/EC) 81 mg PO DAILY amlodipine 5 mg tablet 5 mg PO DAILY acetaminophen 500 mg Tablet 1,000 mg PO Q6H PRN (Reason: Pain) warfarin 4 mg tablet 8 mg PO DAILY sildenafil 50 mg tablet See Rx Instructions .ROUTE .COMPLEX Rx Instructions: TAKE 1 TO 2 TABLETS BY MOUTH ONCE DAILY 30 MINUTES BEFORE SEXUAL ACTIVITY NEEDED Discharge Orders: Discharge ED (Routine); Ordered 12/27/24 Ordered By: Reese Parr Referrals: Caitlin Jaramillo MD [Primary Care Provider, Family Practice] Discharge Diet: Usual diet Discharge Activity: Increase activity as tolerated Patient Instructions: Opioid Safety, Pain Management, Patient Portal & Mahendra Instructions Activity Restrictions/Additional Instructions: Thank you for choosing [facility] for your healthcare needs today. It is very important that you follow up as instructed or that you return to the Emergency Department should you have concerns or if your condition changes or worsens in any way. You were seen in the emergency room with complaints of bruising on your skin. You are set INR which is a measurement of the effectiveness of your Coumadin was below therapeutic level. This is likely because you had stopped the medicine for 2 days. Since you are taking the Coumadin for a mechanical heart valve it is very important that you never skip a dose of your Coumadin unless specifically directed by a physician. The bruising you noted on the skin is superficial and will heal on its own. Your INR today was 1.8 it needs to be between 2.5 and 3.5. You are given a dose of Lovenox in the emergency room will need to continue to give yourself the shots every 12 hours until your INR is between 2.5 and 3.5. Contact your hadoop developer today to arrange for subsequent follow-up and measuring of your INR. 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
[2024-12-27 08:59] LABS: Hematocrit 47.4 % (37-53); Hemoglobin 16.20 g/dL (11.27-16.99); Mean Corpuscular HGB Conc 34.2 g/dL (30-55); Mean Corpuscular Hemoglobin 32.0 pg (27-33); Mean Corpuscular Volume 93.5 fl (82-101); Nucleated Red Blood Cells % 0 %; Platelet Count 180 10^3/cmm (157-399); Red Blood Count 5.07 10^6/uL (3.85-5.65); White Blood Count 9.26 10^3/uL (3.29-11.43)
[2024-12-27 09:11] VITALS: BP 129/90; PULSE 86; O2SAT 95
[2024-12-27 09:11] LABS: INR 1.83 (0.8-1.2); Prothrombin Time 22.30 SECONDS (12.1-14.9)
[2024-12-27 10:00] VITALS: BP 142/87; PULSE 86; O2SAT 95
[2024-12-27 11:52] VITALS: BP 157/92; PULSE 94; O2SAT 96
== END 2024-12-27 11:53 | disposition home or self-care (01) ==
PROVIDERS: Emergency Provider Family Medicine; PCP Family Medicine
DX: S30.1XXA Contusion of abdominal wall, initial encounter (principal); R79.1 Abnormal coagulation profile; I48.20 Chronic atrial fibrillation, unspecified; Z95.2 Presence of prosthetic heart valve; Z79.82 Long term (current) use of aspirin; Z79.01 Long term (current) use of anticoagulants; X58.XXXA Exposure to other specified factors, initial encounter; Z72.0 Tobacco use
CPT/HCPCS: 36415; 85025; 85610; 96372; 99284; J1650; J9999

== ENCOUNTER 2025-01-03 05:00 | Outpatient (RCR) | payer MEDICARE, SELFPAY | END 2025-02-01 23:59 | disposition home or self-care (01) | LOC: SST 05:00 | PROVIDERS: PCP Family Medicine; Visit Provider Psychiatry & Neurology Neurology | DX: I69.320 Aphasia following cerebral infarction (principal) | CPT/HCPCS: 92507 ==

== ENCOUNTER → 2025-01-04 10:30 | Outpatient (BNVA) | payer MEDICARE, SELFPAY | PROVIDERS: PCP Family Medicine; Referring Provider Nurse Practitioner; Visit Provider Specialist | DX: R20.2 Paresthesia of skin (principal); M77.12 Lateral epicondylitis, left elbow | CPT/HCPCS: 95911 ==

== ENCOUNTER → 2025-01-06 09:57 | Outpatient (BNVA) | payer MEDICARE, SELFPAY | PROVIDERS: PCP Family Medicine; Visit Provider Podiatrist Foot & Ankle Surgery | DX: G57.61 Lesion of plantar nerve, right lower limb (principal); G62.9 Polyneuropathy, unspecified | CPT/HCPCS: 99213 ==

== ENCOUNTER → 2025-01-31 10:33 | Outpatient (BNVA) | payer MEDICARE, SELFPAY | PROVIDERS: PCP Family Medicine; Visit Provider Nurse Practitioner | DX: G56.02 Carpal tunnel syndrome, left upper limb (principal); G56.22 Lesion of ulnar nerve, left upper limb | CPT/HCPCS: 99214 ==

== ENCOUNTER 2025-02-02 05:00 | Outpatient (RCR) | payer MEDICARE, SELFPAY | END 2025-03-04 23:59 | disposition home or self-care (01) | LOC: SST 05:00 | PROVIDERS: PCP Family Medicine; Visit Provider Psychiatry & Neurology Neurology | DX: I69.320 Aphasia following cerebral infarction (principal) | CPT/HCPCS: 92507 ==

== ENCOUNTER → 2025-02-16 11:27 | Outpatient (BNVA) | payer MEDICARE, SELFPAY | PROVIDERS: PCP Family Medicine; Visit Provider Nurse Practitioner | DX: Z01.818 Encounter for other preprocedural examination (principal); R73.03 Prediabetes; Z79.01 Long term (current) use of anticoagulants | CPT/HCPCS: 80053; 83036; 85025; 85610 ==

== ENCOUNTER → 2025-02-18 08:15 | Outpatient (BNVA) | payer MEDICARE, SELFPAY | PROVIDERS: PCP Family Medicine; Visit Provider Nurse Practitioner | DX: M75.81 Other shoulder lesions, right shoulder (principal) | CPT/HCPCS: 20610; J1100; J2795; J3301; J9999 ==

== ENCOUNTER 2025-03-05 05:00 | Outpatient (RCR) | payer MEDICARE, SELFPAY | END 2025-04-03 23:59 | disposition home or self-care (01) | LOC: SST 05:00 | PROVIDERS: PCP Family Medicine; Visit Provider Psychiatry & Neurology Neurology | DX: I63.9 Cerebral infarction, unspecified (principal) | CPT/HCPCS: 92507 ==

== ENCOUNTER → 2025-03-07 11:00 | Outpatient (BNVA) | payer MEDICARE, SELFPAY | PROVIDERS: PCP Family Medicine; Visit Provider Nurse Practitioner | DX: Z01.818 Encounter for other preprocedural examination (principal) | CPT/HCPCS: 36415; 80053; 81001; 85025 ==

== ENCOUNTER 2025-03-15 10:47 | Day surgery (SDC) | payer MEDICARE, SELFPAY ==
[2025-03-15] VITALS (10 sets, daily range): BP systolic 116–148; BP diastolic 78–92; PULSE 70–94; RESP 16–17; TEMP 36.2–36.7; O2SAT 93–100; BMI 26.4
[2025-03-15] MEDS: acetaminophen 1,000 MG/100 ML PIGGYBACK 400 MG IV (11:22)
--- NOTE | 2025-03-15 12:24 | P.HPUD_ITS ---
Surgery/Procedure H&P Update DATE OF PROCEDURE: March 15, 2025 DATE H&P PERFORMED: 03/07/25 H&P UPDATE INFORMATION: I have reviewed H&P completed within last 30 days, I have examined patient prior to procedure, No changes to prior documentation, H&P is in [facility] EMR on date indicated and Risks and benefits of the procedure reviewed PLANNED PROCEDURE: Operation Date: 03/15/25 12:35 Proposed Procedures p LEFT Carpal Tunnel Release(Left) - Catarina Casanova MD s LEFT Cubital Tunnel Release(Left) - Catarina Casanova MD Related Problem List Diagnoses 1. Ulnar neuropathy at elbow of left upper extremity: 2. Left carpal tunnel syndrome:
--- NOTE | 2025-03-15 13:12 | P.ANESASSM_ITS ---
Pre-Anesthetic Assessment Height/Weight: Height 1.8 m Weight 86.183 kg Temp Pulse Resp BP Pulse Ox O2 Del Method 97.9 F 80 17 127/88 97 Room Air 03/15/25 11:03 03/15/25 11:03 03/15/25 11:03 03/15/25 11:03 03/15/25 11:03 03/15/25 11:03 Operation Date: 03/15/25 12:35 Proposed Procedures p LEFT Carpal Tunnel Release(Left) - Catarina Casanova MD s LEFT Cubital Tunnel Release(Left) - Catarina Casanova MD Familial anesthetic complications: none Was Beta Lali taken within 24 hours: N/A Was Clonidine taken within 24 hours: N/A Last intake: Intake Last Liquid Date 03/14/25 Last Liquid Time 23:59 Last Solid Date 03/14/25 Last Solid Time 16:30 Social No alcohol and No tobacco Exam alert, oriented x 3, clear to auscultation bilaterally and regular rate & rhythm CV/HEM Hypertension AV replacement a fib Anesthetic Plan ASA status: 3 Anesthesia: General Risk of > 500 ml blood loss (7ml/kg in children): No Medications/Allergies Home Medications ?Medication ?Instructions ?Recorded ?Confirmed ?Last Taken ?Type acetaminophen 500 mg tablet 1,000 mg PO Q6H PRN Pain 0 09/10/23 03/14/25 1 Month Ago History ~02/11/25 warfarin 4 mg tablet 8 mg PO DAILY 09/10/2303/1403/12/25 07:00 History aspirin 81 mg tablet,delayed 81 mg PO DAILY 03/12/24 1 05/14/24 03/13/25 History release (Enteric Coated Aspirin) amlodipine 5 mg tablet 5 mg PO DAILY 11/15/2403/1403/13/25 History metoprolol succinate 25 mg 25 mg PO DAILY 02/16/2502/2603/12/25 History tablet,extended release 24 hr atorvastatin 80 mg tablet 80 mg PO DAILY 03/14/2503/0503/13/25 History Allergies Allergy/AdvReac Type Severity Reaction Status Date / Time No Known Allergies Allergy Verified 03/15/25 10:57 [facility] Anesthesia Medical History Left tennis elbow Tendinitis of right rotator cuff Arthritis of right acromioclavicular joint Chronic atrial fibrillation Surgical History History of repair of right rotator cuff 07/2022 Social History Smoking and tobacco/nicotine status: current every day tobacco/nicotine user
[2025-03-15] MEDS: ceFAZolin 2,000 mg SDV 2000 MG IVP (13:48)
[2025-03-15] MEDS: ceFAZolin 1,000 mg SDV 1000 MG IRRIGATION (14:32)
[2025-03-15] MEDS: BUPivacaine 0.5% INJ 30 mL INJECTION (14:56)
--- NOTE | 2025-03-15 16:22 | P.OP_ITS ---
Operative Report Date of procedure: March 15, 2025 Pre-op diagnosis: Left carpal tunnel syndrome Left cubital tunnel syndrome Post-op diagnosis: Left carpal tunnel syndrome Left cubital tunnel syndrome Post-op findings: Significant compression across the median nerve within the carpal canal. Hyperreactive ulnar nerve with purplish discoloration and obvious compression at the cubital tunnel Procedure done: Left carpal tunnel release Left cubital tunnel release Implants: None Specimens removed/disposition: None Pathology: None Surgeon: Catarina Casanova MD Pumper Gauger Apprentice: Yaneth Ramos, nurse practitioner, who services were required for retraction, positioning, exposure, and closure. Anesthesia: General (Per LMA, ASA 3) Estimated blood loss (mL): 3 Tourniquet time (min): 42 (250 mmHg) IV fluids (mL): 1,000 Urine output (mL): 0 (No [place]) Complications: None Findings: Severe compression across the carpal canal and across the cubital tunnel consistent with nerve conduction study findings and patient symptoms. Condition: stable Disposition: PACU (Then return to same-day surgery for discharge to home) Brief History: This 55-year-old gentleman presented to the clinic complaining of bilateral upper extremity pain and numbness. Primary symptoms were in the left upper extremity. Nerve conduction studies demonstrated moderately severe entrapment of the left median nerve at the wrist with left ulnar neuropathy at the elbow. The patient had symptoms consistent with these findings. He had no evidence of radiculopathy. He had failed conservative treatments including stretching, anti-inflammatory medications, and bracing. He wished to proceed with surgical interventions. Risks and complications were discussed with him. Consents were signed in the office and questions were answered. The patient was scheduled for the above procedure. Procedure: The patient was brought to the operating theater. The patient had a general anesthesia per LMA, ASA 3. Sterile tourniquet was placed and was elevated after exsanguination and a surgical pause. The tourniquet was elevated to 250 mmHg for a total tourniquet time of 42 minutes. The patient was also given Ancef 2 g preoperatively. The arm was then prepped and draped with DuraPrep in usual fashion with the arm draped free. A surgical pause was performed. At the time, the surgical pause, we confirmed the site and side of surgery. We also confirmed the patient's identity, appropriate and timely administration of preoperative antibiotics and preoperative surgical markings. An incision was then made along the thenar crease. The incision crossed the wrist joint in a curvilinear fashion. Dissection continued through skin and soft tissues using a scalpel. The palmaris longus was identified along with the transverse carpal ligament. Each of these was released carefully to avoid injury to the median nerve. We were able to dissect gently into the carpal canal which was noted to be quite tight with significant compression across the median nerve. The nerve was visualized and was an hourglass shape with a purpleish discoloration. After release, the canal was subsequently palpated to assure there was no bony encroachment upon the canal. There was a quite thickened fibrous tissue within the canal, and this was opened longitudinally as well. The canal was then palpated distally and proximally to assure that my small finger was passed easily without impingement. Finding this to be so, attention was directed to closure. The wound was irrigated with ropivacaine plain. It was then closed with 3-0 nylon in an interrupted mattress fashion. Attention was then directed to the elbow. When the patient was seen in the preoperative holding area, landmarks were marked. Incision was made slightly posterior to the ulnar nerve to protect it during the dissection. The incision was made over approximately a 4 to 5 inch area centered over the area between the medial epicondyle and the olecranon. The dissection was continued through skin and soft tissues carefully. We also incised the flexor aponeurosis over the ulnar nerve taking care to isolate the ulnar nerve and avoid injury to it. The aponeurotic band over the nerve was divided and the nerve was traced distally between the two heads of the flexor carpi ulnaris muscle. Care was taken to protect neurovascular structures as well as any branches of the nerve. The fasciotomy of the flexor carpi ulnaris was accomplished to a point where I could pass my finger along the nerve and not feel any area which compressed my small finger. The ulnar nerve was left lying in its bed and it was also evaluated proximally to assure there were no further bands of compression. Gently I was able to extend the release proximally as well to assure that once again I could pass a small finger without any obvious areas which compressed across the ulnar nerve. In this fashion, we had completed the release of the entire cubital tunnel without injury to the nerve. Hemostasis was obtained. The nerve was noted to be purplish and somewhat swollen consistent with compression in this area. Once we had completely released proximally and distally and were able to palpate and directly visualize the nerve, attention was directed to closure. We then passively extended and flexed the elbow to assure that the nerve remained in its cubital area. Subluxation of the nerve did not occur, and therefore, attention was directed to closure. Skin closure was the only closure accomplished in addition to the subcutaneous tissues. We closed the subcutaneous tissues with 2-0 Vicryl and subsequently closed the skin with a 3-0 Monocryl subcuticular stitch. Sterile dressing was placed consisting of Dermabond and OpSite to each incision. Steri-Strips were also placed on the elbow incision. This was followed by fluffed fluffs within the hand as well as a large soft dressing with sterile soft roll at the elbow. Both dressings were wrapped into place with an Jimmy wrap. Tourniquet was released after 42 minutes. There were no complications and no specimens. The patient tolerated the procedure well. Plan is that the patient will be discharged to home. In the Recovery Room, the patient was neurologically intact. There were no complications. There were no specimens. The procedure was well tolerated. Patient will be discharged home to follow-up with me in the office. Related Problem List Diagnoses 1. Ulnar neuropathy at elbow of left upper extremity: 2. Left carpal tunnel syndrome:
--- NOTE | 2025-03-15 17:12 | SUR.PHASEII ---
There was a delay in getting meds to beds delivered to the patient, resulting in staying in postop longer.
== END 2025-03-15 16:58 | disposition home or self-care (01) ==
PROVIDERS: PCP Family Medicine; Visit Provider Specialist
PROC: (CPT 64721; principal; 2025-03-15 12:25)
PROC: (CPT 64718; 2025-03-15 12:25)
DX: G56.02 Carpal tunnel syndrome, left upper limb (principal); G56.22 Lesion of ulnar nerve, left upper limb; I10 Essential (primary) hypertension; I48.91 Unspecified atrial fibrillation; Z79.01 Long term (current) use of anticoagulants; Z79.82 Long term (current) use of aspirin; F17.200 Nicotine dependence, unspecified, uncomplicated
CPT/HCPCS: 64718; 64721; J0131; J0690; J2250; J2405; J2704; J3010; J3490; J7030; J9999

== ENCOUNTER → 2025-03-28 14:38 | Outpatient (BNVA) | payer MEDICARE, SELFPAY | PROVIDERS: PCP Family Medicine; Visit Provider Nurse Practitioner | DX: Z98.890 Other specified postprocedural states (principal) | CPT/HCPCS: 99024 ==

== ENCOUNTER 2025-04-04 05:00 | Outpatient (RCR) | payer MEDICARE, SELFPAY | END 2025-05-04 23:59 | disposition home or self-care (01) | LOC: SST 05:00 | PROVIDERS: PCP Family Medicine; Visit Provider Psychiatry & Neurology Neurology | DX: I63.332 Cerebral infarction due to thrombosis of left posterior cerebral artery (principal) | CPT/HCPCS: 92507 ==